=== PATIENT | male | born 1960 | race Caucasian/White ===

== ENCOUNTER 2020-09-12 06:52 | Outpatient (NON) | payer OTHER, SELFPAY ==
[2020-09-15 17:05] LABS: SARS-CoV-2 RNA PCR Negative
== END 2020-09-12 06:53 ==
LOC: ANHCOVIDDT 07:15
PROVIDERS: PCP Family Medicine Adolescent Medicine; Visit Provider Family Medicine Adolescent Medicine
DX: R05 Cough (principal); R50.9 Fever, unspecified; Z20.828 Contact with and (suspected) exposure to other viral communicable diseases
CPT/HCPCS: 87635; C9803; U0003

== ENCOUNTER 2022-12-04 14:16 | Emergency (ER) | payer OTHER, SELFPAY ==
--- NOTE | ~2022-12-04 | XR_ITS ---
XR chest 2V DATE: 12/04/2022 16:12 INDICATION: Cough. Lightheadedness. TECHNIQUE: PA and lateral views COMPARISON: None FINDINGS: Heart size is within normal range. No hilar or mediastinal enlargement. No pulmonary consol idation, pleural effusion, pulmonary vascular congestion or pneumothorax is detected. Mild thoracic dextroscoliosis and diffuse idiopathic skeletal hyperostosis of the thoracic spine. IMPRESSION: No active cardiopulmonary disease Reviewed, dictated and finalized at location [facility]. SPLANT NURSE
[2022-12-04 14:35] VITALS: BP 133/72; PULSE 72; RESP 14; TEMP 37.1; O2SAT 98
[2022-12-04 15:55] LABS: Influenza A QL RT-PCR Negative (Negative); Influenza B QL RT-PCR Negative (Negative); SARS-CoV-2 RNA PCR Negative
--- NOTE | 2022-12-04 16:08 | ED.EPISTAXIS ---
HPI - Epistaxis General Chief complaint: Epistaxis Stated complaint: nose bleed Time Seen by Provider: 12/04/22 14:48 Source: patient Mode of arrival: ambulatory Limitations: no limitations History of Present Illness HPI Narrative: This is a 62 year old male that presents to the ER after an episode of epistaxis today. Reports he has had some cough and congestion the last week. Reports today while at work he had a nosebleed on the left side. This resolved without intervention. He started to feel lightheaded which prompted him to be seen. He is not on any blood thinners. Denies fever, or shortness of breath. Related Data Allergies Allergy/AdvReac Type Severity Reaction Status Date / Time No Known Allergies Allergy Mild Verified 11/12/22 10:06 Review of Systems Review of Systems: CONSTITUTIONAL: Denies fever ENT: Reports rhinorrhea, congestion RESPIRATORY: Reports cough. Denies dyspnea. All systems reviewed & are unremarkable except as noted in HPI and below PMFSH Past Medical History Medical History (Updated 12/04/22 @ 17:59 by Erica Mullins PA-C) Hypothyroidism, unspecified Family History Family History (Updated 11/11/22 @ 07:30 by Doug Encarnacion MD) Father Rheumatoid arthritis Mother Lung cancer Social History Social History (Updated 12/04/22 @ 16:13 by Erica Mullins PA-C) Smoking status: Current every day smoker Exam Narrative: GENERAL: Well-appearing, well-nourished, and in no acute distress. HEAD: Normocephalic, atraumatic. EYES: PERRLA and EOMI. ENT: Nares clear, no rhinorrhea or epistaxis. Mucous membranes moist. Oropharynx without tonsillar hypertrophy exudate or other lesions. Bilateral TMs pearly andrea non-bulging NECK: Supple. No adenopathy or masses. CHEST: Clear to auscultation. No respiratory distress. No wheezes rales or rhonchi HEART: Regular rate and rhythm. No murmur heard. Normal peripheral pulses. EXTREMITIES: Normal range of motion. No edema. SKIN: Warm, dry, no rash. NEURO: No focal deficits. Alert and oriented x3. PSYCH: Normal mood and affect Course Course Emergency Course: Patient updated on workup and agrees with plan of care Vital Signs Vital signs: Vital Signs Temperature 98.8 F 12/04/22 14:35 Pulse Rate 72 12/04/22 14:35 Respiratory Rate 14 12/04/22 14:35 Blood Pressure 133/72 12/04/22 14:35 Pulse Oximetry 98 12/04/22 14:35 Oxygen Delivery Room Air 12/04/22 14:35 Temperature 98.8 F 12/04/22 14:35 Pulse Rate 72 12/04/22 14:35 Respiratory Rate 14 12/04/22 14:35 Blood Pressure 133/72 12/04/22 14:35 Pulse Oximetry 98 12/04/22 14:35 Oxygen Delivery Room Air 12/04/22 14:35 MDM - Epistaxis MDM Narrative Medical decision making narrative: Patient presents to the ER for a nosebleed. This had stopped prior to arrival. He is not on any anticoagulation. Reporting cold symptoms that have been present over the last week. Patient is afebrile and nontoxic-appearing. His vitals are stable. CBC with normal white blood cell count and hemoglobin. His platelets are normal. COVID and flu swabs are negative. Chest x-ray without acute cardiopulmonary abnormality. Patient was updated on work-up and agrees with plan of care. He is to follow-up with his primary care provider. He was given warnings to return to the ER Differential Diagnosis Differential diagnosis: Likely anterior epistaxis and other (viral syndrome, dehydration, pneumonia) Lab Data Attestation: I reviewed the patient's lab results. 12/04/22 16:35 12/04/22 16:35 Labs: Lab Results 12/04/22 12/04/22 12/04/22 Range/Units 15:02 16:35 16:35 WBC 9.2 (4.5-10.0) K/mm3 RBC 5.14 (4.6-6.20) M/mm3 Hgb 16.3 (14.0-18.0) g/dL Hct 48.5 (42.0-52.0) % MCV 94.4 (80-100) fl MCH 31.7 (26-34) pg MCHC 33.6 (32-36) g/dl RDW 13.8 (11.5-14.5) % Plt Count 266 (150-375) k/mm3 MPV 10.4 (7.4-10.4)
[2022-12-04 16:41] LABS: Basophils Absolute Auto 0.1 K/mm3 (0.0-0.1); Basophils Percent Auto 0.8 % (0.2-1.2); Eosinophils Absolute Auto 0.3 K/mm3 (0-0.3); Eosinophils Percent Auto 2.8 % (0-4.4); Hematocrit 48.5 % (42.0-52.0); Hemoglobin 16.3 g/dL (14.0-18.0); Immature Granulocyte Absolute 0.04 K/mm3 (0.00-0.031); Immature Granulocyte Percent A 0.4 % (0-0.5); Lymphocytes Percent Auto 39.2 % (18.3-44.2); Mean Corpuscular HGB Conc 33.6 g/dl (32-36); Mean Corpuscular Hemoglobin 31.7 pg (26-34); Mean Corpuscular Volume 94.4 fl (80-100); Mean Platelet Volume 10.4 fl (7.4-10.4); Monocytes Absolute Auto 0.8 K/mm3 (0.1-0.6); Neutrophils Absolute Auto 4.4 K/mm3 (1.3-6.7); Neutrophils Percent Auto 47.8 % (45.5-73.1); Platelet Count Result 266 k/mm3 (150-375); Red Blood Count 5.14 M/mm3 (4.6-6.20); Red Cell Distribution Width 13.8 % (11.5-14.5); White Blood Count 9.2 K/mm3 (4.5-10.0)
== END 2022-12-04 18:40 | disposition home or self-care (01) ==
PROVIDERS: Emergency Provider Physician Assistant; PCP Family Medicine Adolescent Medicine
DX: R04.0 Epistaxis (principal); B34.9 Viral infection, unspecified; Z20.822 Contact with and (suspected) exposure to COVID-19; E03.9 Hypothyroidism, unspecified
CPT/HCPCS: 36415; 71046; 85025; 87636; 99283

== ENCOUNTER 2022-12-15 00:01 | Observation (INO) | payer OTHER, SELFPAY ==
[2022-12-15] VITALS (15 sets, daily range): BP systolic 95–134; BP diastolic 56–82; PULSE 67–75; RESP 16–20; TEMP 35.5–36.6; O2SAT 89–96; BMI 41.0
[2022-12-15 00:10] LABS: Glucose Point of Care 189 mg/dl (65-105)
--- NOTE | 2022-12-15 00:29 | ED.NAVMDI ---
HPI - Nausea/Vomiting/Diarrhea General Chief complaint: Nausea/Vomiting/Diarrhea Stated complaint: hypoglycemia. n/v/weakness Time Seen by Provider: 12/15/22 00:19 History of Present Illness HPI Narrative: 62-year-old male here via EMS for evaluation of generalized weakness today. Patient states that this evening after eating dinner he became nauseated, diaphoretic and felt weak all over. He did fall to his knees on the bathroom floor but denies head injury or loss of consciousness. He then called his who called an ambulance. His blood sugar in the field was 42. He was administered glucagon and his symptoms improved and his glucose came up to 189. Patient does not take any medicine for diabetes. His only past medical history is levothyroxine. Denies alcohol use today. Denies recent use of corticosteroids. He currently feels slightly fatigued but denies any abdominal pain, vomiting, diarrhea, chest pain or shortness of breath. Related Data Allergies Allergy/AdvReac Type Severity Reaction Status Date / Time No Known Allergies Allergy Mild Verified 12/15/22 00:16 Review of Systems Review of Systems: Gen: Reports weakness. Denies fevers or chills Eyes: Denies eye pain or visual change ENT: Denies congestion Respiratory: Denies shortness of breath or cough CV: Denies chest pain or palpitations GI: Reports nausea. Denies abdominal pain, emesis or diarrhea : denies burning, urgency, frequency or hematuria Musculoskeletal: Denies back pain or muscle pain Neuro: Denies numbness, tingling, weakness or focal weakness Skin: Denies rash Except as documented, all other systems reviewed and negative [facility] Past Medical History Medical History Hypothyroidism, unspecified Family History Family History (Updated 11/11/22 @ 07:30 by Doug Encarnacion MD) Father Rheumatoid arthritis Mother Lung cancer Social History Social History (Updated 12/04/22 @ 16:13 by Erica Mullins PA-C) Smoking status: Current every day smoker Tobacco type: cigarettes Living arrangements: with family Spiritual care concerns: No Exam Narrative: APPEARANCE: Obese. Well appearing, no pain in distress, well-nourished. Head: Normocephalic and atraumatic. EYES: PERRLA/EOMI, conjunctivae clear NOSE: No nasal drainage EARS: External ear normal in appearance THROAT: Oropharynx is clear. Mucous membranes are moist. NECK: Supple. No adenopathy, no masses. RESPIRATORY: Airway patent, respirations nonlabored. Clear to auscultation bilaterally, no rales, rhonchi, wheezing. CARDIOVASCULAR: Regular rate and rhythm without murmurs, rubs, or gallops. ABDOMINAL: Normoactive bowel sounds. Soft, nontender, nondistended. No rebound tenderness or guarding. MUSCULOSKELETAL: Extremities are warm and well-perfused. Moves all extremities well. No edema. NEURO: Normal speech. No focal neurologic deficits. SKIN: Skin is warm and dry. No rashes. PSYCHIATRIC: Normal affect/mood. Course Vital Signs Vital signs: Vital Signs Pulse Rate 67 12/15/22 00:04 Respiratory Rate 18 12/15/22 00:04 Blood Pressure 126/75 12/15/22 00:04 Pulse Oximetry 95 12/15/22 00:04 Oxygen Delivery Room Air 12/15/22 00:04 Pulse Rate 70 12/15/22 01:47 Respiratory Rate 16 12/15/22 01:47 Blood Pressure 115/61 12/15/22 01:47 Pulse Oximetry 94 12/15/22 01:47 Oxygen Delivery Nasal Cannula 12/15/22 01:33 Oxygen Flow Rate 2 12/15/22 01:33 MDM - Nausea/Vomiting/Diarrhea MDM Narrative Medical decision making narrative: 62-year-old male here via EMS complaining of nausea, diaphoresis and generalized weakness and found to have a blood sugar of 42 in the field. He was administered d50 and his blood sugar came up to 189. Unclear etiology of hypoglycemia as patient states he ate his normal amount today and has not had any insulin or sulfonylureas. No nausea, vomiting or diarrhea
[2022-12-15 01:10] LABS: Basophils Absolute Auto 0.1 K/mm3 (0.0-0.1); Basophils Percent Auto 0.5 % (0.2-1.2); Eosinophils Absolute Auto 0.2 K/mm3 (0-0.3); Eosinophils Percent Auto 2.5 % (0-4.4); Hematocrit 48.7 % (42.0-52.0); Hemoglobin 16.3 g/dL (14.0-18.0); Immature Granulocyte Absolute 0.03 K/mm3 (0.00-0.031); Immature Granulocyte Percent A 0.3 % (0-0.5); Lymphocytes Absolute Auto 2.02 K/mm3 (0.9-3.2); Lymphocytes Percent Auto 20.8 % (18.3-44.2); Mean Corpuscular HGB Conc 33.5 g/dl (32-36); Mean Corpuscular Hemoglobin 31.3 pg (26-34); Mean Corpuscular Volume 93.7 fl (80-100); Mean Platelet Volume 11.2 fl (7.4-10.4); Monocytes Absolute Auto 0.7 K/mm3 (0.1-0.6); Monocytes Percent Auto 7.5 % (2.6-8.5); Neutrophils Absolute Auto 6.7 K/mm3 (1.3-6.7); Neutrophils Percent Auto 68.4 % (45.5-73.1); Platelet Count Result 219 k/mm3 (150-375); Red Cell Distribution Width 13.7 % (11.5-14.5); White Blood Count 9.7 K/mm3 (4.5-10.0)
[2022-12-15 01:25] LABS: Alanine Aminotransferase 20 U/L (6-50); Albumin Level 4.1 g/dL (3.5-5.1); Alkaline Phosphatase 105 U/L (38-126); Anion Gap 4 mmol/L (8-16); Aspartate Amino Transferase 24 U/L (17-59); Bilirubin,Total 0.5 mg/dL (0.2-1.3); Blood Urea Nitrogen 9 mg/dL (9-20); Calcium 8.7 mg/dL (8.4-10.2); Carbon Dioxide 29 mmol/L (22-30); Chloride 97 mmol/L (98-107); Estimated CRCL calculation 184 ml/min; Estimated Glomerular Filt Rate > 60; Glucose 183 mg/dL (65-110); Magnesium 1.8 mg/dL (1.6-2.3); Potassium 3.6 mmol/L (3.4-5.0); Sodium 130 mmol/L (137-145)
[2022-12-15 01:26] LABS: Ethanol < 10 mg/dL (<10)
[2022-12-15 03:05] LABS: Influenza A QL RT-PCR Negative (Negative); Influenza B QL RT-PCR Negative (Negative); SARS-CoV-2 RNA PCR Negative
--- NOTE | 2022-12-15 03:13 | PM.IMHP ---
H&P: HPI History of Present Illness Date/Time: 12/15/22 03:13 Chief Complaint: Weakness Narrative: This is a 52-year-old male with past medical history significant for tobacco dependence, smokes 1 and half packs of cigarettes daily, morbid obesity, hypothyroidism. Patient presented to the emergency room via EMS after he had an episode of nausea vomiting diarrhea near syncopal episode fell to his knees after dinner diaphoresis, cold and clammy skin. called EMS upon arrival he was found to have a blood sugar of 41 was given glucagon and brought to the emergency room for further evaluation. In emergency room preliminary workup has been essentially nonrevealing a sodium was 138 glucose was 189 patient denies ribs so repeat issues use of insulin or any herbal supplements or any weight loss products he has been eating all his meals has not noted weight loss. Patient is been placed in observation for further evaluation management and treatment. Review of Systems Review of Systems: Nausea, vomiting, diarrhea, near syncope, generalized weakness, diaphoretic cold clammy skin, low glucose Constitutional: Constitutional: Denies body ache(s), Denies chills, Denies fatigue, Denies fever(s), Denies lethargy, Denies malaise, Denies night sweats, Denies poor appetite and Denies weakness Eyes: Eyes: Denies change in vision ENT: Denies dysphagia, Reports nasal discharge and Denies odynophagia Cardiovascular: Cardiovascular: Denies chest pain, Reports lightheadedness and Denies palpitations Respiratory: Respiratory: Denies chest congestion and Denies pain on inspiration Gastrointestinal: Gastrointestinal: Denies abdominal pain, Denies hematochezia, Denies coffee ground emesis, Denies constipation, Denies dyspepsia, Denies heartburn, Reports diarrhea, Reports nausea and Reports vomiting Genitourinary: Genitourinary: Denies dysuria Musculoskeletal: Musculoskeletal: Denies myalgias and Denies joint swelling Integumentary/Breasts: Skin/Breast: Denies rash Neurologic: Denies focal weakness Psychiatric: Psychiatric: Reports no additional psychiatric complaints and Reports as per HPI Endocrine: Endocrine: Denies cold intolerance, Denies heat intolerance, Denies polydipsia, Denies polyuria and Denies palpitations Hematologic/Lymphatic: Hematologic/Lymphatic: Reports no additional hematologic/lymphatic complaints and Reports as per HPI Allergic/Immunologic: Allergic/Immunologic: Reports no additional allergic/immunologic complaints and Reports as per HPI [facility] Past Medical History Medical History Hypothyroidism, unspecified Family History Family History (Updated 11/11/22 @ 07:30 by Doug Encarnacion MD) Father Rheumatoid arthritis Mother Lung cancer Social History Social History (Updated 12/04/22 @ 16:13 by Erica Mullins PA-C) Smoking status: Current every day smoker Tobacco type: cigarettes Living arrangements: with family Spiritual care concerns: No Meds Home Medications and Allergies Home Medications Medication Instructions Recorded Confirmed Type levothyroxine 150 mcg tablet See Rx Instructions .Route 11/04/22 12/06/22 Rx .COMPLEX #30 tabs sildenafil 100 mg tablet 100 mg PO DAILY PRN sexual 11/12/22 12/06/22 Rx activity #6 tabs Allergies Allergy/AdvReac Type Severity Reaction Status Date / Time No Known Allergies Allergy Mild Verified 12/15/22 00:16 Vital Signs Vital Signs - 24 hr 12/15/22 00:04 12/15/22 00:30 12/15/22 00:15 Pulse Rate 67 68 71 Respiratory Rate 18 18 17 Blood Pressure 126/75 132/82 128/79 Pulse Oximetry 95 94 94 Oxygen Delivery Room Air Oxygen Flow Rate 12/15/22 00:46 12/15/22 01:01 12/15/22 01:33 Pulse Rate 67 71 Respiratory Rate 17 18 Blood Pressure 134/79 108/60 Pulse Oximetry 95 94 89 L Oxygen Delivery Nasal Cannula Oxygen Flow Rate 2 12/15/22 01:31 12/15/22 01:47
[2022-12-15 04:34] LABS: Cortisol Random 8.86 ug/dL
--- NOTE | 2022-12-15 04:35 | ADMGEN ---
This patient, Gregorio Stephens, was admitted to 3 [facility] Surg Room 302-01 at 0424. Patient/family oriented to hospital policies and general routines including ID bracelet, bed and alarms, visiting hours, pain management, procedures, bathroom and other care routines, personal items, smoking policy, room service/diet, and visiting hours. Information on how to activate the Rapid Response Team has been discussed. Patient/Family are encouraged to report perceived risks to care and to ask questions if they do not understand what they are told or what they should do.
[2022-12-15 10:11] LABS: Free T4 Free Thyroxine 1.17 ng/mL (0.78-2.19)
[2022-12-15 12:06] LABS: Glucose Point of Care 109 mg/dl (65-105)
[2022-12-15 12:21] LABS: Hemoglobin A1C 5.9 % (<5.7)
[2022-12-15] MEDS: LEVOTHYROXINE SODIUM 25 MCG TABLET PO (12:30)
[2022-12-15 13:37] LABS: Glucose Point of Care 111 mg/dl (65-105)
--- NOTE | 2022-12-15 14:23 | PM.DS ---
DS: Admitting Diagnosis Discharge Date 12/15/2022 Admitting Diagnosis Hypoglycemia Morbid (severe) obesity due to excess calories Hypothyroidism Tobacco dependence DS: Discharge Diagnosis Discharge Diagnosis (1) Hypoglycemia: Code(s): E16.2 - Hypoglycemia, unspecified Status: Acute (2) Morbid (severe) obesity due to excess calories: Code(s): E66.01 - Morbid (severe) obesity due to excess calories Status: Acute (3) Hypothyroidism: Code(s): E03.9 - Hypothyroidism, unspecified Status: Acute (4) Tobacco dependence: Code(s): F17.200 - Nicotine dependence, unspecified, uncomplicated Status: Acute (5) Prediabetes: Code(s): R73.03 - Prediabetes Status: Deleted DS: Summary Hospital Course Reason for hospitalization: N/V and near syncope Hospital Course: Cisco Stephens is a 52-year-old male with past medical history significant for tobacco dependence, morbid obesity, hypothyroidism.? Patient presented to the emergency room via EMS after he had an episode of nausea, vomiting diarrhea, and near syncopal episode. He reported he fell to his knees after dinner with associated diaphoresis, cold and clammy skin.? called EMS upon arrival he was found to have a blood sugar of 41 was given glucagon and brought to the emergency room for further evaluation.? In emergency room preliminary workup has been essentially nonrevealing with a sodium was 138 and glucose was 189. He denied prior episodes of hypoglycemia, use of insulin, use of herbal supplements or any weight loss products. He reported he has been eating all his meals has not noted weight loss.? He denied frequent alcohol use. He stated that his symptoms happened 1 hour after eating at a BBQ. He was admitted to the medical floor for further evaluation. His glucose was monitored Q4 hours and remained stable off glucose fluids. Pre- and post-prandial glucose was checked and 109 and 111, respectively. A1c was obtained and noted to be mildly elevated at 5.9% placing him in the pre-diabetes range. He was counseled on diet, hydration, weight loss and changing positions slowly. Of note, his TSH was noted to be 5.18 and free T4 1.17. Levothyroxine was increased to 175 mcg PO daily and repeat thyroid panel in 4-6 weeks is recommended. Status at Discharge Cognitive/behavioral status at discharge: Alert and oriented x3 Functional status at discharge: independent ambulation Overall status at discharge: patient is back to baseline Time Spent with Patient Time attestation: Total time spent providing and/or coordinating discharge services: Time spent: Greater than 30 minutes Exam Narrative: General: No acute distress.? Well-developed adult male. Temp 97.7F oral, HR 73, RR 16, BP 130/80, spO2 96% room air. BMI 41 kg/m2 Mental Status/Psych: Tired appearing, alert and oriented x3 with clear speech. Neutral mood and affect. Pleasant and cooperative. Skin: Skin fair, warm, dry and intact without rashes or lesions. No open wounds. Good turgor.?No diaphoresis. HEENT: Normocephalic. Sclera is non-icteric. EOM intact. PERRL. Grossly normal hearing. Oral mucosa pink and moist. Tongue midline. Oropharynx within normal limits. Neck: Supple. Thyroid without nodularity. Trachea midline. No JVD. Heart: S1 and S2 regular rate and rhythm. No murmurs, gallops, or rubs auscultated. Chest: Respirations even and unlabored. Lung sounds are clear to auscultation in all lobes bilaterally without wheezes, rhonchi, or rales. Abdomen: Soft, round and non-tender to palpation.? Bowel sounds present in all 4 quadrants. Extremities:? Grossly normal ROM all extremities. No edema. Radial and dorsalis pedis pulses +2 bilaterally. Neurological: No focal deficits. Cranial nerves 2-12 grossly intact.?No facial droop or pronator drift. DS: Data Data Completed and Pending Pending studies at discharge: Renin, serum ACTH, serum Labs on day of discharge: Labs from last 24
[2022-12-15 20:48] LABS: Glucose Point of Care 104 mg/dl (65-105)
== END 2022-12-15 15:15 | disposition home or self-care (01) ==
LOC: ANHED 02:18 → ANH3MEDSUR 14:23
PROVIDERS: Nurse Practitioner Family; Admitting Provider Internal Medicine; Emergency Provider Physician Assistant; PCP Family Medicine Adolescent Medicine; Visit Provider Student in an Organized Health Care Education/Training Program
DX: E16.2 Hypoglycemia, unspecified (principal); E66.01 Morbid (severe) obesity due to excess calories; Z68.41 Body mass index [BMI] 40.0-44.9, adult; E03.9 Hypothyroidism, unspecified; Z20.822 Contact with and (suspected) exposure to COVID-19; F17.210 Nicotine dependence, cigarettes, uncomplicated; Z79.899 Other long term (current) drug therapy
CPT/HCPCS: 36415; 80053; 80307; 82024; 82533; 82948; 83036; 83735; 84244; 84436; 84439; 84443; 85025; 87636; 99285; A9270; G0378

== ENCOUNTER 2023-01-06 12:59 | Emergency (ER) | payer OTHER, SELFPAY ==
--- NOTE | ~2023-01-06 | CT_ITS ---
EXAMINATION: CT abdomen pelvis wo con DATE: 01/06/2023 14:49 INDICATION: Right flank pain, nausea, dizziness TECHNIQUE: Computed tomography (CT) of the abdomen and pelvis was performed without intravenous contr ast. Automated exposure control and iterative reconstruction technique were employed. Exam dose: 166 1.64 mGy-cm total exam DLP. COMPARISON: None. FINDINGS: The lung bases are clear of infiltrate or consolidation. There are some focal honeycombing in the lingula. Normal heart size. Coronary artery calcification. No pericardial or pleural effusion. The liver, gallbladder, bile ducts, spleen, pancreas, pancreatic duct, and adrenal glands and kidneys are unremarkable on this limited noncontrast examination. No urinary tract calculus or hydroureteron ephrosis. Normal caliber and atherosclerotic calcification of the abdominal aorta, iliac and femoral arteries. No intraperitoneal or retroperitoneal or pelvic mass lesion or adenopathy or ascites. Diffuse thickening and urinary bladder wall which may be due to underdistention and/or some prostate enlargement. Normal appendix. Slight diverticulosis; no CT evidence of diverticulitis. There is a prominent of fec al material in the colon but no bowel obstruction, bowel wall thickening, pneumatosis or intraperiton eal free air is detected. Small fat-containing umbilical hernia. Degenerative changes apophyseal joints with associated grade 1 anterolisthesis at L4-5. Diffuse idiop athic skeletal hyperostosis of the thoracic spine. Moderately prominent degenerative disease and mild retrolisthesis at L1-2. IMPRESSION: Normal appendix Minimal diverticulosis; no CT evidence of diverticulitis Prominent amount of fecal material in the colon. No bowel obstruction No urinary tract calculus or hydroureteronephrosis Reviewed, dictated and finalized at Location [facility]. Reviewed, dictated and finalized at location B.
[2023-01-06 13:00] VITALS: BP 147/79; PULSE 75; RESP 18; TEMP 36.5; O2SAT 97
[2023-01-06 13:28] LABS: Basophils Percent Auto 0.3 % (0.2-1.2); Eosinophils Absolute Auto 0.2 K/mm3 (0-0.3); Hematocrit 48.5 % (42.0-52.0); Hemoglobin 16.1 g/dL (14.0-18.0); Immature Granulocyte Absolute 0.02 K/mm3 (0.00-0.031); Immature Granulocyte Percent A 0.2 % (0-0.5); Lymphocytes Absolute Auto 3.59 K/mm3 (0.9-3.2); Lymphocytes Percent Auto 32.3 % (18.3-44.2); Mean Corpuscular HGB Conc 33.2 g/dl (32-36); Mean Corpuscular Hemoglobin 31.2 pg (26-34); Mean Platelet Volume 10.3 fl (7.4-10.4); Monocytes Absolute Auto 0.9 K/mm3 (0.1-0.6); Monocytes Percent Auto 8.2 % (2.6-8.5); Neutrophils Absolute Auto 6.4 K/mm3 (1.3-6.7); Platelet Count Result 237 k/mm3 (150-375); Red Blood Count 5.16 M/mm3 (4.6-6.20); Red Cell Distribution Width 13.7 % (11.5-14.5); White Blood Count 11.1 K/mm3 (4.5-10.0)
[2023-01-06 13:39] LABS: Alanine Aminotransferase 22 U/L (6-50); Albumin Level 4.2 g/dL (3.5-5.1); Alkaline Phosphatase 97 U/L (38-126); Anion Gap 7 mmol/L (8-16); Aspartate Amino Transferase 23 U/L (17-59); Bilirubin,Total 0.6 mg/dL (0.2-1.3); Blood Urea Nitrogen 8 mg/dL (9-20); Calcium 8.7 mg/dL (8.4-10.2); Carbon Dioxide 28 mmol/L (22-30); Chloride 103 mmol/L (98-107); Estimated CRCL calculation 183 ml/min; Estimated Glomerular Filt Rate > 60; Glucose 104 mg/dL (65-110); Lipase 53 U/L (23-300); Potassium 3.9 mmol/L (3.4-5.0); Sodium 138 mmol/L (137-145)
[2023-01-06 15:08] VITALS: BP 126/72; PULSE 78; RESP 13; O2SAT 94
[2023-01-06 15:13] LABS: Glucose Point of Care 99 mg/dl (65-105)
[2023-01-06] MEDS: LACTATED RINGERS 1,000 ML 999 ML IV CONT (15:29)
[2023-01-06 15:30] VITALS: BP 108/76; PULSE 71; RESP 18; O2SAT 93
[2023-01-06] MEDS: ONDANSETRON INJ 4 MG/2 ML VIAL IV PUSH (15:30)
[2023-01-06 15:33] LABS: Appearance Urine Clear (Clear); Bacteria Urine None Seen /hpf; Bilirubin Urine Negative (Negative); Blood Urine Trace (Negative); Color Urine Yellow (Yellow); Glucose Urine UA Negative (Negative); Ketones Urine Negative (Negative); Leukocyte Esterase Ur Negative LEU/UL (Negative); Need Manual Microscopic Reviewed; Nitrate Urine Negative (Negative); Non Pathogenic Casts 0-2; Protein Urine Negative (Negative); RBC Urine 0-2 /hpf (0-2); Specific Grav Ur 1.006 (1.001-1.035); Squamous Epithelial Cell Urine None seen /hpf (Few); Urobilinogen Urine 0.2 mg/dL (<2.0); WBC Urine 0-5 /hpf; pH Urine 6.5 (5.0-9.0)
[2023-01-06 15:39] LABS: Add Urine Microscopic? YES
--- NOTE | 2023-01-06 16:23 | ED.BACK ---
HPI - Back Pain/Injury General Chief Complaint: Back Pain/Injury Stated Complaint: right flank pain Time Seen by Provider: 01/06/23 14:23 History of Present Illness HPI Narrative: Patient presenting with an episode of dizziness and right flank pain, with some nausea. Had similar symptoms in the past and was found to have low blood sugar. He did have lunch prior to this. No dysuria. No focal numbness or weakness. Related Data Allergies Allergy/AdvReac Type Severity Reaction Status Date / Time No Known Allergies Allergy Mild Verified 12/17/22 13:48 Review of Systems Review of Systems: CONST: No fever but felt lightheaded HEENT: No sore throat C/V: No chest pain RESP: No cough GI: Reports right flank pain and nausea : No dysuria. M/S: No joint pain. SKIN: No rash. NEURO: [No headache or focal numbness or weakness] PSYCH: [No depression] [facility] Past Medical History Medical History Hypothyroidism, unspecified Male erectile dysfunction, unspecified Morbid (severe) obesity due to excess calories Tobacco dependence Family History Family History Father Rheumatoid arthritis Mother Lung cancer Social History Social History Smoking packs per day: 1.5 Smoking cigarettes per day: 30.0 Smoking status: Current every day smoker Tobacco type: cigarettes Alcohol intake: former Substance use: never Substance use type: does not use Lack of Transportation: No Lack of Food: Never True Current Housing: I Have Housing Concerned About Future Housing: No Difficulty Paying Gas/Electric Bills: No Difficulty Paying for Meds: No Currently Unemployed: No Education: High School Diploma/GED Difficulty w/ Childcare or Family Care: No Living arrangements: with family Spiritual care concerns: No Exam Narrative: EXAMINATION OF ORGAN SYSTEMS/BODY AREAS: Constitutional: Vital signs per nursing GENERAL:[No acute distress, non-toxic appearing.] HEAD: Normal with no signs of head trauma. EYES: EOMI, conjunctiva normal ENT: Hearing grossly intact LUNGS: Nonlabored breathing. HEART: [Regular rate and rhythm] ABD: [Soft], tender to palpation right flank, anterior abdomen is nontender EXT: Normal range of motion. Normal and equal pulses bilaterally radial and DP SKIN: [No rashes or lesions.] NEURO: [Alert and oriented x 3. No gross focal sensory or strength deficits.] PSYCH: Normal affect Course Vital Signs Vital signs: Vital Signs Temperature 97.7 F 01/06/23 13:00 Pulse Rate 75 01/06/23 13:00 Respiratory Rate 18 01/06/23 13:00 Blood Pressure 147/79 H 01/06/23 13:00 Pulse Oximetry 97 01/06/23 13:00 Oxygen Delivery Room Air 01/06/23 13:00 Temperature 97.7 F 01/06/23 13:00 Pulse Rate 71 01/06/23 15:30 Respiratory Rate 18 01/06/23 15:30 Blood Pressure 108/76 01/06/23 15:30 Pulse Oximetry 93 01/06/23 15:30 Oxygen Delivery Room Air 01/06/23 13:00 MDM - Back Pain/Injury MDM Narrative Medical decision making narrative: Electronic medical record was reviewed. Patient presented to the ED with complaint of [flank pain and vomiting]. Vitals [were within acceptable limits]. Physical exam revealed [tenderness to palpation in right flank pain]. Based on the patient's history and physical exam, my differential includes but is not limited to [cholecystitis, pancreatitis, appendicitis, nephrolithiasis, UTI]; doubt dissection without severe pain or neurovascular deficits. [IV access was established by nursing staff. Patient was given zofran, IV fluids, tylenol]. CBC, BMP, lipase, LFTs, bilirubin and alk phos were obtained. Labs were pertinent for normal CBC, CMP, UA. [Decision was made to obtain a CT-abdomen/pelvis to evaluate for acute abdominal process. This is unremarkable for acute intra-abdominal process, no signs of
== END 2023-01-06 16:50 | disposition home or self-care (01) ==
PROVIDERS: Emergency Provider Emergency Medicine; PCP Family Medicine Adolescent Medicine
DX: R42 Dizziness and giddiness (principal); R10.9 Unspecified abdominal pain; F17.210 Nicotine dependence, cigarettes, uncomplicated; E03.9 Hypothyroidism, unspecified
CPT/HCPCS: 36415; 74176; 80053; 81001; 82948; 83690; 85025; 96361; 96365; 96375; 99284; J0131; J2405; J7120

== ENCOUNTER → 2023-04-16 15:53 | Outpatient (CLI) | payer OTHER, SELFPAY ==
--- NOTE | ~2023-04-16 | MR_ITS ---
MRI of the brain Clinical History: Right sensorineural hearing loss Technique: Axial and sagittal T1-weighted images were acquired. These were followed by axial T2-weigh jennie, diffusion weighted, gradient, and FLAIR images. Thin cut coronal T1-weighted and T2-weighted scotty ges, and thin cut axial T1-weighted images were performed through the internal auditory canals. Follo wing intravenous administration of 20 cc MultiHance gadolinium, T1-weighted fat-sat imaging was perfo rmed through the brain in the axial and coronal planes. Thin cut T1-weighted postcontrast imaging wa s also performed through the internal auditory canals in the axial and coronal planes. Findings: There is no acute infarct, intracranial hemorrhage, or mass lesion. There is focal FLAIR hy perintense signal in the right temporal lobe adjacent to the sylvian fissure (axial FLAIR image 14). No other signal abnormality seen in the remainder of the brain. Ventricles and subarachnoid spaces are unremarkable. Orbits are unremarkable. Paranasal sinuses and m astoid air cells are clear. Major intracranial flow voids are intact. Sagittal midline structures are intact. No abnormal mass lesion seen at the internal auditory canals or cerebellopontine angle regions. No abnormal postcontrast enhancement seen. IMPRESSION: Focal FLAIR hyperintense signal in the subcortical white matter in the right temporal lobe, as detail ed above. This is nonspecific. This could reflect focal chronic ischemic change versus possibly other focal inflammatory process. No other significant findings. Reviewed, dictated and finalized at location . IMPRESSION: Focal FLAIR hyperintense signal in the subcortical white matter in the right te mporal lobe, as detailed above. This is nonspecific. This could reflect focal c hronic ischemic change versus possibly other focal inflammatory process. No other significant findings.
== END ==
PROVIDERS: PCP Family Medicine Adolescent Medicine
DX: H90.A21 Sensorineural hearing loss, unilateral, right ear, with restricted hearing on the contralateral side (principal)
CPT/HCPCS: 70553; A9577

== ENCOUNTER 2023-05-19 12:02 | Emergency (ER) | payer OTHER, SELFPAY ==
[2023-05-19 12:05] VITALS: PULSE 66; RESP 16; O2SAT 90
[2023-05-19 12:38] VITALS: PULSE 67; RESP 12
[2023-05-19] MEDS: IPRATROPIUM BR 0.02% INH SOLN 0.5 MG/2.5 ML VIAL INHALATION (12:44)
[2023-05-19] MEDS: ALBUTEROL SULFATE NEB 2.5 MG/3 ML INH INHALATION (12:44)
--- NOTE | 2023-05-19 12:51 | ED.GENADULT ---
HPI - General Adult General Chief complaint: Dizziness Stated complaint: PULLIAM, dizzy, nausea since last noc Time Seen by Provider: 05/19/23 12:16 History of Present Illness HPI narrative: Patient is a 62-year-old male with history of M?ni?re's disease and vertigo who presents ER with dizziness. Patient reports he was at rest and sitting when he developed warmth and nausea. He then had spinning rotational dizziness. He ended up having some emesis. He tried to stand up but was too unbalanced. He reports his symptoms are improved right now. No weakness in arm or leg or slurred speech. Has not tried any medication. Reports he is not oxygen dependent but he is currently wearing 2 L due to low O2 sat. No chest pain or chest pressure. Denies dyspnea or wheezing. Related Data Allergies Allergy/AdvReac Type Severity Reaction Status Date / Time No Known Allergies Allergy Mild Verified 01/22/23 13:27 Review of Systems Review of Systems: All systems reviewed & are unremarkable except as noted in HPI and below Constitutional: Constitutional: Denies chills, Denies fatigue and Denies fever(s) ENT: Reports dizziness, Denies nasal congestion and Denies sore throat Cardiovascular: Cardiovascular: Denies chest pain, Denies rapid heart rate and Denies radiating jaw, neck or arm pain Respiratory: Respiratory: Denies cough, Denies dyspnea and Denies wheezing Comments: Low O2 sat Gastrointestinal: Gastrointestinal: Denies abdominal pain, Reports nausea and Reports vomiting [facility] Past Medical History Medical History (Updated 05/19/23 @ 14:12 by Jose Guadalupe Wharton MD) Hypothyroidism, unspecified Male erectile dysfunction, unspecified Meniere syndrome Morbid (severe) obesity due to excess calories Tobacco dependence Family History Family History Father Rheumatoid arthritis Mother Lung cancer Social History Social History Smoking packs per day: 1.5 Smoking cigarettes per day: 30.0 Smoking status: Current every day smoker Tobacco type: cigarettes Alcohol intake: former Substance use: never Substance use type: does not use Lack of Transportation: No Lack of Food: Never True Current Housing: I Have Housing Concerned About Future Housing: No Difficulty Paying Gas/Electric Bills: No Difficulty Paying for Meds: No Currently Unemployed: No Education: High School Diploma/GED Difficulty w/ Childcare or Family Care: No Living arrangements: with family Spiritual care concerns: No Exam Narrative: GENERAL: Well-appearing, well-nourished, and in no acute distress. HEAD: Normocephalic, atraumatic. EYES: PERRLA and EOMI. ENT: Mucous membranes moist. TMs normal bilaterally. NECK: Supple. CHEST: Faint scattered wheezing with expiration. No respiratory distress. HEART: Regular rate and rhythm. Normal peripheral pulses. ABDOMEN: Soft, nontender, nondistended. EXTREMITIES: Normal range of motion. No edema. NEURO: Alert and oriented x3. PSYCH: Normal mood and affect. Course Course Emergency Course: Up and ambulatory without issue. Pulse oximeter reading of 90-91% on room air while ambulating. No complaints. D/c. Vital Signs Vital signs: Vital Signs Pulse Rate 66 05/19/23 12:05 Respiratory Rate 16 05/19/23 12:05 Pulse Oximetry 90 05/19/23 12:05 Oxygen Delivery Room Air 05/19/23 12:05 Pulse Rate 68 05/19/23 12:57 Respiratory Rate 19 05/19/23 12:57 Blood Pressure 118/78 05/19/23 13:16 Pulse Oximetry 91 05/19/23 13:16 Oxygen Delivery Room Air 05/19/23 12:05 Medical Decision Making Vital Signs Vital Signs: Vital Signs Pulse Rate 66 05/19/23 12:05 Respiratory Rate 16 05/19/23 12:05 Pulse Oximetry 90 05/19/23 12:05 Oxygen Delivery Room Air 05/19/23 12:05 Pulse Rate 68 05/19/23 12:57 Respiratory Rate 1
[2023-05-19 12:57] VITALS: PULSE 68; RESP 19
[2023-05-19] MEDS: SODIUM CHLORIDE 0.9% IV 1,000 ML 999 ML IV CONT (13:01)
[2023-05-19] MEDS: MECLIZINE HCL 25 MG TABLET PO (13:02)
[2023-05-19 13:16] VITALS: BP 118/78; O2SAT 91
--- NOTE | 2023-05-19 14:17 | ECG_ITS ---
Measurements Intervals Randall Rate: 66 P: 42 GA: 165 QRS: 16 QRSD: 98 T: 38 QT: 392 QTc: 411 Interpretive Statements SINUS RHYTHM LOW QRS VOLTAGE IN PRECORDIAL LEADS BASELINE ARTIFACT- I, II, AVR BORDERLINE ECG NO PREVIOUS ECG AVAILABLE FOR COMPARISON Electronically Signed On 05-19-2023 16:29:13 CDT by Toby Najera D.O.
== END 2023-05-19 14:39 | disposition home or self-care (01) ==
PROVIDERS: Emergency Provider Emergency Medicine; PCP Family Medicine Adolescent Medicine
DX: H81.09 Meniere's disease, unspecified ear (principal); E03.9 Hypothyroidism, unspecified; E66.01 Morbid (severe) obesity due to excess calories; Z68.41 Body mass index [BMI] 40.0-44.9, adult; F17.210 Nicotine dependence, cigarettes, uncomplicated; R94.31 Abnormal electrocardiogram [ECG] [EKG]
CPT/HCPCS: 93005; 94640; 96360; 99283; A9270; J7030

== ENCOUNTER 2023-12-08 12:52 | Outpatient (CLI) | payer BC, SELFPAY ==
--- NOTE | ~2023-12-08 | MR_ITS ---
MRI of the brain Clinical History: Right temporal T2 hyperintensity Technique: Axial and sagittal T1-weighted images were acquired. These were followed by axial T2-weigh jennie, diffusion weighted, gradient, and FLAIR images. Following intravenous administration of 20 cc Mu ltiHance gadolinium, T1-weighted fat-sat imaging was performed in the axial, coronal, and sagittal pl anes. COMPARISON: 04/16/2023 Findings: Stable 1.0 x 0.5 cm FLAIR hyperintense subcortical white matter lesion in the right tempora l lobe. No other signal abnormality seen in the brain parenchyma. No acute infarct, intracranial hemo rrhage, or definite mass lesion seen. Ventricles and subarachnoid spaces are unremarkable. Orbits are unremarkable. Paranasal sinuses and m astoid air cells are clear. Major intracranial flow voids are intact. Sagittal midline structures are intact. No abnormal postcontrast enhancement identified. IMPRESSION: Stable focal FLAIR hyperintense lesion in the subcortical right temporal lobe. Stability is reassurin g of a benign finding. Reviewed, dictated and finalized at location [facility]. [facility] IMPRESSION: Stable focal FLAIR hyperintense lesion in the subcortical right temporal lobe. Stability is reassuring of a benign finding.
== END 2023-12-08 12:53 ==
PROVIDERS: PCP Family Medicine Adolescent Medicine; Visit Provider Student in an Organized Health Care Education/Training Program
DX: G93.89 Other specified disorders of brain (principal)
CPT/HCPCS: 70553; A9577

== ENCOUNTER 2024-01-31 10:02 | Emergency (ER) | payer BC, SELFPAY ==
--- NOTE | ~2024-01-31 | XR_ITS ---
EXAMINATION: XR thoracic spine 3V DATE: 01/31/2024 10:58 INDICATION: Thoracic spine pain post fall TECHNIQUE: One AP, lateral and lateral swimmer's views of the thoracic spine were obtained. COMPARISON: None. FINDINGS: 13 degrees thoracic levoscoliosis. Sagittal alignment is normal. Vertebral body heights are normal. M ultilevel mild disc height loss throughout the thoracic spine. There are bridging or nearly bridging endplate osteophytes at multiple levels consistent with diffuse idiopathic skeletal hyperostosis (DIS H). IMPRESSION: 1. Mild thoracic levoscoliosis with mild spondylosis and multiple bridging endplate osteophytes bladd er consistent with diffuse idiopathic skeletal hyperostosis (DISH). Reviewed, dictated and finalized at location A. IMPRESSION: 1. Mild thoracic levoscoliosis with mild spondylosis and multiple bridging endp late osteophytes bladder consistent with diffuse idiopathic skeletal hyperostos is (DISH).
--- NOTE | ~2024-01-31 | XR_ITS ---
EXAMINATION: XR ribs RT 2V w CXR 2V DATE: 01/31/2024 10:58 INDICATION: Thoracic spine and right rib pain post fall TECHNIQUE: Frontal and lateral views of the chest and 3 views of the right ribs were obtained. COMPARISON: None FINDINGS: Old healed posterior right ninth rib fracture. No acute rib fractures identified. Mild opacities at t he posterior lung bases. No pleural effusion or pneumothorax. The mediastinal silhouette is normal. P rominent right subacromial spur with narrowing of the subacromial space which could predispose toward s rotator cuff disease. IMPRESSION: 1. Old healed posterior right ninth rib fracture. No acute rib fractures identified. 2. Mild dependent basilar opacities and favor atelectasis over mild pulmonary edema or pneumonia. Reviewed, dictated and finalized at location A. IMPRESSION: 1. Old healed posterior right ninth rib fracture. No acute rib fractures identi fied. 2. Mild dependent basilar opacities and favor atelectasis over mild pulmonary e sohail or pneumonia.
--- NOTE | 2024-01-31 10:05 | ED.GENADULT ---
HPI - General Adult General Chief complaint: Back Pain/Injury Stated complaint: Fall Injury/Back Time Seen by Provider: 01/31/24 10:05 Source: patient, RN notes reviewed and old records reviewed Mode of arrival: ambulatory Limitations: no limitations History of Present Illness HPI narrative: 63-year-old male to [facility] with complaint of right midback pain for 1 month. Patient endorses history of Meniere's disease states that 1 month ago he had an episode in his garage and fell to his side and back onto right posterior ribs/mid back. Patient reports not being seen at that time. patient states that last week he had a repeat episode and fall onto same area of back. Patient denies allergies. Patient denies urinary or bowel changes. Patient states pain while sitting 4/10 reports pain 10/10 with movement. Related Data Home Medications Medication Instructions Recorded Confirmed baclofen 20 mg tablet mg 01/31/24 Allergies Allergy/AdvReac Type Severity Reaction Status Date / Time No Known Allergies Allergy Mild Verified 01/31/24 10:17 Review of Systems Review of Systems: All systems reviewed & are unremarkable except as noted in HPI and below Constitutional: Constitutional: Reports no additional constitutional complaints Eyes: Eyes: Reports no additional eye complaints ENT: Reports system reviewed and no additional complaints, except as documented Cardiovascular: Cardiovascular: Reports no additional cardiovascular complaints, Denies chest pain and Denies dyspnea Respiratory: Respiratory: Reports no additional respiratory complaints, Denies cough and Denies dyspnea Musculoskeletal: Musculoskeletal: Reports as per HPI, Reports back pain ( Mid into right posterior ribs), Denies deformity, Denies neck pain, Denies numbness, Denies radiating pain into limb, Denies stiffness and Denies tingling Neurologic: Reports system reviewed and no additional complaints, except as documented Psychiatric: Psychiatric: Reports no additional psychiatric complaints [facility] Past Medical History Medical History Hypothyroidism, unspecified Male erectile dysfunction, unspecified Meniere syndrome Morbid (severe) obesity due to excess calories Tobacco dependence Family History Family History Father Rheumatoid arthritis Mother Lung cancer Social History Social History Smoking packs per day: 1 Smoking cigarettes per day: 20.0 Smoking status: Current every day smoker Tobacco type: cigarettes Alcohol intake: former Substance use: never Substance use type: does not use Do You Feel Safe in your Home?: Yes Lack of Transportation: No Lack of Food: Never True Current Housing: I Have Housing Concerned About Future Housing: No Difficulty Paying Gas/Electric Bills: No Difficulty Paying for Meds: No Currently Unemployed: No Education: High School Diploma/GED Difficulty w/ Childcare or Family Care: No Living arrangements: with family Spiritual care concerns: No Comments At the time of my signature, I reviewed and agree with the nursing past medical, surgical, social, and family history. There is no relevant family history pertinent to the patient complaint. Exam Const: General: cooperative, healthy appearing, comfortable, no acute distress, alert and well nourished Nutritional Appearance: well nourished Orientation/consciousness: patient oriented x3 Limitations: no limitations HENMT: Head: normal to inspection Ears: external ears normal Face/Nose/Sinus: Normal external nose present, Normal nares present, normal facial exam, No erythema and No edema Face and sinus: normal facial exam, no erythema and no edema Mouth: Yes Normal oral and palatal mucosa present Eyes: General: appearance normal, both eyes and all
[2024-01-31 10:08] VITALS: BP 142/82; PULSE 67; RESP 16; TEMP 36.7; O2SAT 97
== END 2024-01-31 11:41 | disposition home or self-care (01) ==
PROVIDERS: Emergency Provider Nurse Practitioner Family; PCP Family Medicine Adolescent Medicine
DX: M48.10 Ankylosing hyperostosis [Forestier], site unspecified (principal); J98.11 Atelectasis; F17.210 Nicotine dependence, cigarettes, uncomplicated; H81.09 Meniere's disease, unspecified ear; E03.9 Hypothyroidism, unspecified; E66.01 Morbid (severe) obesity due to excess calories; Z68.41 Body mass index [BMI] 40.0-44.9, adult
CPT/HCPCS: 71046; 71100; 72072; 99214; G0463

== ENCOUNTER 2024-03-20 10:12 | Emergency (ER) | payer BC, SELFPAY ==
[2024-03-20 10:20] VITALS: BP 141/74; PULSE 78; RESP 20; TEMP 36.4; O2SAT 94
--- NOTE | 2024-03-20 10:44 | ED.WOUNDLAC ---
HPI - Wound/Laceration General Chief Complaint: Wound/Laceration Stated Complaint: bite on rt toe, blister Time Seen by Provider: 03/20/24 10:45 Source: patient Mode of arrival: ambulatory Limitations: no limitations History of Present Illness HPI narrative: 63 presented for complaint of wound to the right great toe. First noticed 3 days ago; it started as a small red bump then a white area opened and drained a small amount of clear fluid. Endorses itching. Denies pain to the site. Denies any other skin concerns. Reports concern for spider bite. Has not applied anything to the site. Related Data Allergies Allergy/AdvReac Type Severity Reaction Status Date / Time No Known Allergies Allergy Mild Verified 03/20/24 10:27 Review of Systems Review of Systems: CONSTITUTIONAL: Denies body aches, fever, chills, or sweats. EYES: Denies visual changes, redness, or discharge. ENT: Denies rhinorrhea, congestion CARDIOVASCULAR: Denies chest pain, palpitations, or edema. RESPIRATORY: Denies cough or dyspnea. GASTROINTESTINAL: Denies abdominal pain, nausea, vomiting, or diarrhea. SKIN: reports skin wound right great toe MUSCULOSKELETAL: Denies back pain, joint pain, or myalgia. NEUROLOGIC: Denies headache, numbness, tingling, or weakness. [facility] Past Medical History Medical History Hypothyroidism, unspecified Male erectile dysfunction, unspecified Meniere syndrome Morbid (severe) obesity due to excess calories Tobacco dependence Family History Family History Father Rheumatoid arthritis Mother Lung cancer Social History Social History (Updated 03/20/24 @ 10:59 by Arleth Roca APRN) Smoking packs per day: 1.5 Smoking cigarettes per day: 30.0 Years smoked: 43 Smoking pack-years: 64.50 Smoking status: Current every day smoker Tobacco type: cigarettes Alcohol intake: former Substance use: current Substance use type: marijuana Do You Feel Safe in your Home?: Yes Lack of Transportation: No Lack of Food: Never True Current Housing: I Have Housing Concerned About Future Housing: No Difficulty Paying Gas/Electric Bills: No Difficulty Paying for Meds: No Currently Unemployed: No Education: High School Diploma/GED Difficulty w/ Childcare or Family Care: No Living arrangements: with family Spiritual care concerns: No Comments At time of signature, I have reviewed and agree with nursing past medical, surgical, social and family history unless otherwise noted. Please see nursing chart for further information. There is no relevant family history pertinent to the presenting complaint Exam Narrative: GENERAL: Well-appearing EYES: conjunctivae clear, and EOMI. ENT: Mucous membranes moist. CHEST: Clear to auscultation. HEART: Regular rate and rhythm. SKIN: Warm, dry. Right foot with 1.5cm area c/w ruptured blister over 1st MTP; flat, nontender, no drainage or fluctuance, no swelling. Mild surrounding erythema. No streaking. 2nd toe IP joint medial aspect with firm pinpoint area of erythema (pt reports it is from wearing tennis shoes yesterday) NEURO: Alert and oriented x3. Course Course Emergency Course: Patient is aware of diagnosis, understands and agrees to treatment plan. Anticipatory guidance given. Patient agrees to follow-up as directed and is aware of reasons to seek care at the emergency department. Portions of this record may have been created with voice recognition software Level of Care: Express Care Visit Vital Signs Vital signs: Vital Signs Temperature 97.6 F 03/20/24 10:20 Pulse Rate 78 03/20/24 10:20 Respiratory Rate 20 03/20/24 10:20 Blood Pressure 141/74 H 03/20/24 10:20 Pulse Oximetry 94 03/20/24 10:20 Oxygen Delivery Room Air 03/20/24 10:20 Temperature 97.6 F 03/20/24 10:20 Pulse Rate 78 03/20/24
== END 2024-03-20 10:55 | disposition home or self-care (01) ==
PROVIDERS: Emergency Provider Nurse Practitioner Family; PCP Family Medicine Adolescent Medicine
DX: L03.031 Cellulitis of right toe (principal); F17.210 Nicotine dependence, cigarettes, uncomplicated; E03.9 Hypothyroidism, unspecified; E66.01 Morbid (severe) obesity due to excess calories; Z68.27 Body mass index [BMI] 27.0-27.9, adult; H81.09 Meniere's disease, unspecified ear
CPT/HCPCS: 99213; G0463

== ENCOUNTER 2024-03-24 00:52 | Day surgery (SDC) | payer BC, SELFPAY ==
[2024-03-12 10:42] VITALS: BMI 42.4
[2024-03-24 08:28] VITALS: BP 112/76; PULSE 86; RESP 18; TEMP 36.6; O2SAT 93
[2024-03-24] MEDS: LACTATED RINGERS 1,000 ML 150 ML IV CONT (08:40)
--- NOTE | 2024-03-24 09:23 | PM.HPGS ---
History of Present Illness History of Present Illness Consent: Risks, benefits, and alternatives have been discussed and questions answered. Patient agrees to proceed with procedure. Chief complaint: neoplasm screening Narrative: Gregorio Stephens is a 63 year old male here for first screening colonoscopy Review of Systems Review of Systems: All systems reviewed & are unremarkable except as noted in HPI and below PMFSH Past Medical History Medical History Hypothyroidism, unspecified Male erectile dysfunction, unspecified Meniere syndrome Morbid (severe) obesity due to excess calories Tobacco dependence Family History Family History Father Rheumatoid arthritis Mother Lung cancer Social History Social History (Updated 03/20/24 @ 10:59 by Arleth Roca APRN) Smoking packs per day: 1.5 Smoking cigarettes per day: 30.0 Years smoked: 43 Smoking pack-years: 64.50 Smoking status: Current every day smoker Tobacco type: cigarettes Alcohol intake: former Substance use: current Substance use type: marijuana Do You Feel Safe in your Home?: Yes Lack of Transportation: No Lack of Food: Never True Current Housing: I Have Housing Concerned About Future Housing: No Difficulty Paying Gas/Electric Bills: No Difficulty Paying for Meds: No Currently Unemployed: No Education: High School Diploma/GED Difficulty w/ Childcare or Family Care: No Living arrangements: with family Spiritual care concerns: No Meds Home Medications and Allergies Home Medications Medication Instructions Recorded Confirmed Type triamterene 37.5 1 tablet PO DAILY #30 tabs 09/16/23 03/20/24 Rx mg-hydrochlorothiazide 25 mg tablet levothyroxine 175 mcg tablet 175 mcg PO DAILY@0630 30 days #30 01/26/24 03/20/24 Rx (Synthroid) tabs cephalexin 500 mg capsule 500 mg PO Q8H 7 days #21 caps 03/20/24 03/24/24 Rx Allergies Allergy/AdvReac Type Severity Reaction Status Date / Time No Known Allergies Allergy Mild Verified 03/24/24 08:27 Vital Signs Vital Signs - 24 hr 03/24/24 08:28 Temperature 97.9 F Pulse Rate 86 Respiratory Rate 18 Blood Pressure 112/76 Pulse Oximetry 93 Oxygen Delivery Room Air Exam Const: General: comfortable and no acute distress HENMT: Face/Nose/Sinus: Normal nares present Eyes: General: appearance normal, both eyes and all related structures Neck: Neck: no JVD Resp: Auscultation: clear to auscultation bilaterally Cardio: Rate: regular rate Rhythm: regular rhythm GI: Inspection: non-distended GI Palp: Yes Soft to palpation Skin: General skin exam: normal color Neuro: General: gait normal Speech: normal speech Extrem: General: normal to inspection Psych: Mental Status: mental status grossly normal Assessment and Plan Assessment and plan (1) Colon cancer screening: Code(s): Z12.11 - Encounter for screening for malignant neoplasm of colon Status: Acute Assessment and Plan: colonoscopy
[2024-03-24 09:52] VITALS: BP 95/57; PULSE 75; RESP 30; O2SAT 92
[2024-03-24 10:02] VITALS: BP 107/73; PULSE 72; RESP 25; O2SAT 94
[2024-03-24 10:12] VITALS: BP 116/78; PULSE 69; RESP 22; O2SAT 93
--- NOTE | 2024-04-01 14:05 | WPDANESEPPF ---
Anes - Initial Pre Proc Eval Procedure: Operation Date: 03/24/24 09:30 Proposed Procedures p Screening Colonoscopy - Jovan Leos MD Date/Time: 04/01/24 14:05 Surgeon: Jovan Leos MD Pre Op Diagnosis: neoplasm screening Patient Data Age: 63 Gender: M Height: 1.8 m Weight: 137.7 kg Last Vital Signs Temp 97.9 F 03/24/24 08:28 Pulse 69 03/24/24 10:12 Resp 22 H 03/24/24 10:12 BP 116/78 03/24/24 10:12 Pulse Ox 93 03/24/24 10:12 O2 Del Method Room Air 03/24/24 10:12 O2 Flow Rate 3 03/24/24 10:02 Allergies Allergy/AdvReac Type Severity Reaction Status Date / Time No Known Allergies Allergy Mild Verified 03/26/24 10:46 Home Medications Medication Instructions Recorded Confirmed Type triamterene 37.5 1 tablet PO DAILY #30 tabs 09/16/23 03/26/24 Rx mg-hydrochlorothiazide 25 mg tablet levothyroxine 175 mcg tablet 175 mcg PO DAILY@0630 30 days #30 01/26/24 03/26/24 Rx (Synthroid) tabs cephalexin 500 mg capsule 500 mg PO Q8H 7 days #21 caps 03/20/24 03/26/24 Rx diazepam 5 mg tablet (Valium) 5 mg PO BID PRN dizziness or 03/26/24 03/26/24 Rx vertigo #20 tabs Patient hx anesthesia problems: none Family hx anesthesia problems: none Results Review: All pre-operative results and documents have been reviewed as part of the pre-operative evaluation. [facility] Past Medical History Medical History Hypothyroidism, unspecified Male erectile dysfunction, unspecified Meniere syndrome Morbid (severe) obesity due to excess calories Tobacco dependence Family History Family History Father Rheumatoid arthritis Mother Lung cancer Social History Social History Smoking packs per day: 1.5 Smoking cigarettes per day: 30.0 Years smoked: 43 Smoking pack-years: 64.50 Smoking status: Current every day smoker Tobacco type: cigarettes Alcohol intake: former Substance use: current Substance use type: marijuana Do You Feel Safe in your Home?: Yes Lack of Transportation: No Lack of Food: Never True Current Housing: I Have Housing Concerned About Future Housing: No Difficulty Paying Gas/Electric Bills: No Difficulty Paying for Meds: No Currently Unemployed: No Education: High School Diploma/GED Difficulty w/ Childcare or Family Care: No Living arrangements: with family Spiritual care concerns: No Anes - Eval Final PreProcedure Day of Procedure 04/01/24 14:05 Patient weight: morbidly obese Heart: regular rate and rhythm Lungs: clear to auscultation Airway: Mallampati scale class II Neurological: alert and oriented Last oral intake: >/= 8 hours ASA classification: III Emergent: no Anesthetic plan: proceed Anesthesia type and monitoring: general GIVS and standard monitoring Results Review: All pre-operative results and documents have been reviewed as part of the pre-operative evaluation. Informed Consent: The patient's anesthetic plan and its attendant risks and benefits were discussed with the patient/family/POA. Questions were solicited and answers provided to the satisfaction of the patient/family/POA.
== END 2024-03-24 10:23 | disposition home or self-care (01) ==
PROVIDERS: PCP Family Medicine Adolescent Medicine; Visit Provider Internal Medicine Gastroenterology
PROC: 0DJD8ZZ Inspection of Lower Intestinal Tract, Via Natural or Artificial Opening Endoscopic (ICD-10-PCS; CPT 45378; principal; 2024-03-24 09:30)
DX: Z12.11 Encounter for screening for malignant neoplasm of colon (principal); D12.2 Benign neoplasm of ascending colon; D12.3 Benign neoplasm of transverse colon; D12.8 Benign neoplasm of rectum; E03.9 Hypothyroidism, unspecified; E66.01 Morbid (severe) obesity due to excess calories; Z68.41 Body mass index [BMI] 40.0-44.9, adult; F17.210 Nicotine dependence, cigarettes, uncomplicated; F12.90 Cannabis use, unspecified, uncomplicated
CPT/HCPCS: 45385; 88305; J2704; J7120

== ENCOUNTER 2024-12-30 11:08 | Outpatient (CLI) | payer BC, SELFPAY ==
--- NOTE | ~2024-12-30 | CT_ITS ---
CT Scan of the Chest without Contrast: Clinical Indication: Lung cancer screening, nicotine dependence Technique: Contiguous sections were acquired throughout the chest without intravenous contrast. Dose reduction technique was used on this scan by utilizing automated exposure control and iterative recon struction technique. The dose-length product (DLP) was 372.98 mGy-cm. Findings: There is no evidence of any significant mediastinal, hilar or axillary lymphadenopathy. Coronary georgette ry calcification are present. There is no evidence of pleural or pericardial effusion. The lungs are clear, aside from calcified left upper lobe granuloma. There are minimal peripheral chr onic interstitial or emphysematous changes. Images through the upper abdomen reveal no abnormalities. Impression: Lung RADS 2: Benign appearance. 12 month follow-up screening CT advised. Reviewed, dictated and finalized at [facility]. Impression: Lung RADS 2: Benign appearance. 12 month follow-up screening CT advised.
--- NOTE | ~2024-12-30 | MR_ITS ---
EXAMINATION: MR brain/brain stem wo/w con DATE: 12/30/2024 12:50 INDICATION: Cerebrovascular disease. Headache. Dizziness. TECHNIQUE: Magnetic resonance imaging (MRI) of the brain and brainstem was performed without and with 20 mL ProHance intravenous contrast. COMPARISON: Brain MRI 12/08/2023, 04/16/23 FINDINGS: There are scattered areas of nonspecific increased T2-weighted signal intensity in the cere bral white matter. There is no intracranial hemorrhage, acute infarction, or abnormal intracranial ma ss lesion. The ventricles are normal in size. The orbits are normal. The paranasal sinuses are clear. There are trace mastoid effusions. IMPRESSION: 1. Stable mild nonspecific cerebral white matter disease, which likely represents chronic small vesse l ischemic disease. Reviewed, dictated and finalized at location B. IMPRESSION: 1. Stable mild nonspecific cerebral white matter disease, which likely represen ts chronic small vessel ischemic disease.
== END 2024-12-30 11:09 | disposition home or self-care (01) ==
PROVIDERS: PCP Family Medicine Adolescent Medicine; Visit Provider Nurse Practitioner Family
DX: Z12.2 Encounter for screening for malignant neoplasm of respiratory organs (principal); R90.82 White matter disease, unspecified; R29.6 Repeated falls; H81.09 Meniere's disease, unspecified ear; Z87.891 Personal history of nicotine dependence
CPT/HCPCS: 70553; 71271; A9579

== ENCOUNTER 2025-01-26 10:53 | Emergency (ER) | payer BC, SELFPAY ==
[2025-01-26 11:03] VITALS: BP 124/93; PULSE 75; RESP 16; TEMP 36.1; O2SAT 95
--- NOTE | 2025-01-26 11:29 | ED_ITS ---
HPI - Skin/Abscess/Foreign Bdy General Chief complaint: Skin/Abscess/Foreign Body Stated complaint: tick in back Source: patient Mode of arrival: ambulatory Limitations: no limitations History of Present Illness HPI narrative: 64-year-old male presented for complaint of a tick to the right side. First noticed last night. Says he was hungting [place] in [place] about 10 days ago. 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 Denies pain,n/v/d/f/c, fatigue, or myalgia. Related Data Allergies Allergy/AdvReac Type Severity Reaction Status Date / Time No Known Allergies Allergy Mild Verified 01/26/25 11:05 Review of Systems Review of Systems: CONSTITUTIONAL: Denies body aches, fever, chills, or sweats. EYES: Denies visual changes, redness, or discharge. ENT: Denies rhinorrhea, congestion CARDIOVASCULAR: Denies chest pain, palpitations, or edema. RESPIRATORY: Denies cough or dyspnea. GASTROINTESTINAL: Denies abdominal pain, nausea, vomiting, or diarrhea. SKIN: reports tick to right ribs MUSCULOSKELETAL: Denies back pain, joint pain, or myalgia. NEUROLOGIC: Denies headache, numbness, tingling, or weakness. [facility] Past Medical History Medical History Falls frequently Cerebrovascular disease Meniere syndrome Tobacco dependence Male erectile dysfunction, unspecified Morbid (severe) obesity due to excess calories Hypothyroidism, unspecified Family History Family History Father Rheumatoid arthritis Mother Lung cancer Social History Social History Smoking packs per day: 1.5 Smoking cigarettes per day: 30.0 Years smoked: 43 Smoking pack-years: 64.50 Smoking status: Current every day smoker Tobacco type: cigarettes Alcohol intake: former Substance use: current Substance use type: marijuana Do You Feel Safe in your Home?: Yes Lack of Transportation: No Lack of Food: Never True Current Housing: I Have Housing Concerned About Future Housing: No Difficulty Paying Gas/Electric Bills: No Difficulty Paying for Meds: No Currently Unemployed: No Education: High School Diploma/GED Difficulty w/ Childcare or Family Care: No Living arrangements: with family Spiritual care concerns: No Comments At time of signature, I have reviewed and agree with nursing past medical, surgical, social and family history unless otherwise noted. Please see nursing chart for further information. There is no relevant family history pertinent to the presenting complaint Exam Narrative: GENERAL: Well-appearing ENT: Mucous membranes moist. Oropharynx without edema, erythema or lesions. NECK: Supple. No lymphadenopathy CHEST: even and unlabored HEART: Regular rate and rhythm. SKIN: Warm, dry. Right lateral ribs with live tick imbedded in skin, surrounding erythema [id number] irregular in shape, no bulls eye appearing rash, skin is nontender, no fluctuance or drainage. no streaking NEURO: Alert and oriented x3. Course Course Emergency Course: Patient is aware of diagnosis, understands and agrees to treatment plan. Anticipatory guidance given. Patient agrees to follow-up as directed and is aware of reasons to seek care at the emergency department. Portions of this record may have been created with voice recognition software Level of Care: Express Care Visit Vital Signs Vital signs: Vital Signs Temperature 97 F L 01/26/25 11:03 Pulse Rate 75 01/26/25 11:03 Respiratory Rate 16 01/26/25 11:03 Blood Pressure 124/93 H 01/26/25 11:03 Pulse Oximetry 95 01/26/25 11:03 Oxygen Delivery Room Air 01/26/25 11:03 Temperature 97 F L 01/26/25 11:03 Pulse Rate 75 01/26/25 11:03 Respiratory Rate 16 01/26/25 11:03 Blood Pressure 124/93 H 01/26/25 11:03 Pulse Oximetry 95 01/26/25 11:03 Oxygen Delivery Room Air 01/26/25 11:03 Reviewed Procedures Foreign Body Removal Foreign Body #1: Foreign Body Removal Date: 01/26/25 Site: right (ribs) Description of foreign body: insect (tick) Technique: removal with forceps Confirmed by:: direct visualization and palpation Complications: none Foreign Body Removal Narrative: Tick removed intact. Site cleansed with skintegrity. MDM - Skin/Abscess/Foreign Bdy MDM Narrative Medical decision making narrative: Discussed physical exam findings, tick removed completely from right lateral rib area. Cleansed with skintegrity and bandaid applied. Rx doxycycline for prophylaxis. Advised supportive measures and signs/symptoms to go to the ER. Pt is appropriate for outpt treatment and f/u with pcp. Differential Diagnosis Differential diagnosis: Likely abscess of skin or subcutaneous tissue, dermatophytosis, urticaria, herpes zoster, cellulitis, insect bites and contact dermatitis Discharge Plan Discharge Clinical Impression: Tick bite Patient Disposition: Home Condition: Stable Instructions: Antibiotic Form, Lyme Disease (ED), Tick Bite (ED) Additional Instructions: The tick was removed completely today. Watch for Symptoms of tick-borne diseases such as Lyme disease or rash a small red bite or rash at the site is common but may indicate an allergic reaction symptoms of tick-borne diseases: Flu like symptoms such as fever, fatigue, muscle aches, joint pain, and bull's eye rash Take tylenol as needed for pain Keep the area clean and dry. take antibiotic as directed today for prophylaxis Contact your primary care provider today to schedule a follow-up appointment. Go to the ER for any worsening symptoms or concerns Patient Language: Danish Prescriptions: New doxycycline hyclate 100 mg tablet 200 mg PO DAILY 1 Days Qty: 2 0RF No Action Claritin-D 24 Hour 10-240 mg tablet extended release 24 hr 1 tablet PO DAILY Qty: 90 3RF levothyroxine [Synthroid] 175 mcg tablet 175 mcg PO DAILY@0630 30 Days Qty: 30 5RF Follow-up/Referrals: Doug Encarnacion MD [Primary Care Provider] - Time of Disposition: 11:39
== END 2025-01-26 11:45 | disposition home or self-care (01) ==
PROVIDERS: Emergency Provider Nurse Practitioner Family; PCP Family Medicine Adolescent Medicine
DX: S20.461A Insect bite (nonvenomous) of right back wall of thorax, initial encounter (principal); W57.XXXA Bitten or stung by nonvenomous insect and other nonvenomous arthropods, initial encounter; F17.210 Nicotine dependence, cigarettes, uncomplicated; F12.90 Cannabis use, unspecified, uncomplicated; I67.9 Cerebrovascular disease, unspecified; E03.9 Hypothyroidism, unspecified; E66.01 Morbid (severe) obesity due to excess calories; Z68.41 Body mass index [BMI] 40.0-44.9, adult
CPT/HCPCS: 99213; G0463

== ENCOUNTER 2025-04-30 05:31 | Observation (INO) | payer BC, SELFPAY ==
[2025-04-30] VITALS (24 sets, daily range): BP systolic 89–144; BP diastolic 45–92; PULSE 64–95; RESP 14–28; TEMP 35.8–36.8; O2SAT 90–96; BMI 41.7
--- NOTE | ~2025-04-30 | XR_ITS ---
EXAMINATION: XR chest 1V portable DATE: 04/30/2025 06:25 INDICATION: Fluid bolus TECHNIQUE: frontal view of the chest was obtained. COMPARISON: Chest radiograph dated 01/31/2024 and 12/04/2022 FINDINGS: Mild increased streaky interstitial opacities in the bilateral lower lung zones which could represent atelectasis, mild pulmonary edema, pneumonia or some combination thereof. Heart size is normal. No p leural effusion or pneumothorax. Calcified nodules in the left upper lung zone and calcified left hil ar lymph nodes consistent with old granulomatous disease. IMPRESSION: 1. Mild opacities at the bilateral lung bases which represent atelectasis, mild pulmonary edema, pneu monia or some combination thereof. Reviewed, dictated and finalized at location A. IMPRESSION: 1. Mild opacities at the bilateral lung bases which represent atelectasis, mild pulmonary edema, pneumonia or some combination thereof.
--- NOTE | 2025-04-30 06:14 | ED.GENADULT ---
HPI - General Adult General Chief complaint: Unspecified <Adina Grant MD - Last Filed: 04/30/25 06:56> Stated complaint: feels food stuck in throat <Adina Grant MD - Last Filed: 04/30/25 06:56> Time Seen by Provider: 04/30/25 05:36 <Adina Grant MD - Last Filed: 04/30/25 06:56> History of Present Illness HPI narrative: Patient is a 64-year-old male who presents to the emergency department this morning complaining of a fluid bolus since 6:00 p.m. last night. States that he was eating turkey. States that he has not been able to drink or eat anything since this occurred without having to vomit. Admits that this has happened once in the past and at that time he was administered medication through the IV which resolved the food bolus. Patient admits that he is heavy smoker but denies any history of COPD or asthma. Otherwise denies any additional symptoms or concerns at this time PE <Adina Grant MD - Last Filed: 04/30/25 06:56> Related Data Allergies/adverse reactions: Allergies Allergy/AdvReac Type Severity Reaction Status Date / Time No Known Allergies Allergy Mild Verified 04/30/25 07:28 <Adina Grant MD - Last Filed: 04/30/25 06:56> Review of Systems Review of Systems: All systems are reviewed and are negative unless stated otherwise in the HPI. <Adina Grant MD - Last Filed: 04/30/25 06:56> PMFSH Past Medical History Medical History: Medical History Thyroid disorder Right-sided cerebrovascular accident (CVA) Falls frequently Cerebrovascular disease Meniere syndrome Tobacco dependence Male erectile dysfunction, unspecified Morbid (severe) obesity due to excess calories Hypothyroidism, unspecified <Adina Grant MD - Last Filed: 04/30/25 06:56> Family History Family History: Family History Father Rheumatoid arthritis Mother Lung cancer Sibling Diabetes mellitus <Adina Grant MD - Last Filed: 04/30/25 06:56> Social History Social History: Social History Smoking packs per day: 1.5 Smoking cigarettes per day: 30.0 Years smoked: 43 Smoking pack-years: 64.50 Smoking status: Current every day smoker Tobacco type: cigarettes Alcohol intake: former Substance use: current Substance use type: marijuana Do You Feel Safe in your Home?: Yes Lack of Transportation: No Lack of Food: Never True Current Housing: I Have Housing Concerned About Future Housing: No Difficulty Paying Gas/Electric Bills: No Difficulty Paying for Meds: No Currently Unemployed: No Education: High School Diploma/GED Difficulty w/ Childcare or Family Care: No Living arrangements: with family Spiritual care concerns: No <Adina Grant MD - Last Filed: 04/30/25 06:56> Exam Narrative: General: Alert, awake, afebrile, in no acute distress. HEENT: PERRL, no rhinorrhea, no post nasal drip, oropharynx clear. Neck: Trachea midline, no JVD, no lymphadenopathy. Cardiovascular: Regular rate and rhythm, no murmurs, rubs or gallops, no peripheral edema. Respiratory: Clear to auscultation bilaterally, no tachypnea, no wheezing, no rhonchi, no rubs, no respiratory distress. Abdomen: Soft, nontender, nondistended, no rebound, no guarding, no peritoneal signs. Musculoskeletal: No joint swelling or deformity, normal muscle tone. Skin: No rashes or petechia, no signs of infection. Psychiatric: Alert and oriented, normal behavior and judgment for situation. Neurological: Alert and oriented to person, place, and time. Follows all commands. No focal deficits, speech is clear and fluent. <Adina Grant MD - Last Filed: 04/30/25 06:56> Course Course Emergency Course: 0710: Food is not passed despite glucagon. GI contacted will take GI suite. 0826: Patient on the way to the GI suite. Still hypoxic after nebulizer treatment. Discussed with patient as well as hospitalist service. Admit for aspiration pneumonia after procedure. Will be started on ceftriaxone and metronidazole. <Jose Guadalupe Wharton MD - Last Filed: 04/30/25 08:27> Vital Signs Vital signs: Vital Signs Temperature 98.2 F 04/30/25 05:39 Pulse Rate 83 04/30/25 05:39 Respiratory Rate 18 04/30/25 05:39 Blood Pressure 144/75 H 04/30/25 05:39 Pulse Oximetry 90 04/30/25 05:39 Temperature 97.7 F 04/30/25 08:24 Pulse Rate 90 04/30/25 08:24 Respiratory Rate 18 04/30/25 08:24 Blood Pressure 134/86 04/30/25 08:24 Pulse Oximetry 94 04/30/25 08:24 Oxygen Delivery Nasal Cannula 04/30/25 08:24 Oxygen Flow Rate 3 04/30/25 08:24 <Adina Grant MD - Last Filed: 04/30/25 06:56> Vital Signs Temperature 98.2 F 04/30/25 05:39 Pulse Rate 83 04/30/25 05:39 Respiratory Rate 18 04/30/25 05:39 Blood Pressure 144/75 H 04/30/25 05:39 Pulse Oximetry 90 04/30/25 05:39 Temperature 97.7 F 04/30/25 08:24 Pulse Rate 90 04/30/25 08:24 Respiratory Rate 18 04/30/25 08:24 Blood Pressure 134/86 04/30/25 08:24 Pulse Oximetry 94 04/30/25 08:24 Oxygen Delivery Nasal Cannula 04/30/25 08:24 Oxygen Flow Rate 3 04/30/25 08:24 <Jose Guadalupe Wharton MD - Last Filed: 04/30/25 08:27> Medical Decision Making MDM Narrative Medical decision making narrative: The patient was evaluated by myself in the emergency department. History is obtained from patient who is an independent historian and physical exam was performed. External medical records were reviewed at this time. IV was established and pertinent tests were ordered. Patient was administered 2 mg of IV glucagon for fluid bolus. Laboratory results obtained revealing no acute process. Imaging studies obtained included CXR which was independently interpreted by me revealing: IMPRESSION: 1. Mild opacities at the bilateral lung bases which represent atelectasis, mild pulmonary edema, pneumonia or some combination thereof. Differential diagnosis considerations include esophageal food bolus, esophageal stricture. Comorbidities impacting this visit include history of fluid bolus. I have evaluated and discussed social determinants of health with the patient that could potentially impact subsequent diagnosis and treatment plans. Patient was signed out to Dr. Wharton pending remainder of the workup. <Adina Grant MD - Last Filed: 04/30/25 06:56> Vital Signs Vital Signs: Vital Signs Temperature 98.2 F 04/30/25 05:39 Pulse Rate 83 04/30/25 05:39 Respiratory Rate 18 04/30/25 05:39 Blood Pressure 144/75 H 04/30/25 05:39 Pulse Oximetry 90 04/30/25 05:39 Temperature 97.7 F 04/30/25 08:24 Pulse Rate 90 04/30/25 08:24 Respiratory Rate 18 04/30/25 08:24 Blood Pressure 134/86 04/30/25 08:24 Pulse Oximetry 94 04/30/25 08:24 Oxygen Delivery Nasal Cannula 04/30/25 08:24 Oxygen Flow Rate 3 04/30/25 08:24 <Adina Grant MD - Last Filed: 04/30/25 06:56> Vital Signs Temperature 98.2 F 04/30/25 05:39 Pulse Rate 83 04/30/25 05:39 Respiratory Rate 18 04/30/25 05:39 Blood Pressure 144/75 H 04/30/25 05:39 Pulse Oximetry 90 04/30/25 05:39 Temperature 97.7 F 04/30/25 08:24 Pulse Rate 90 04/30/25 08:24 Respiratory Rate 18 04/30/25 08:24 Blood Pressure 134/86 04/30/25 08:24 Pulse Oximetry 94 04/30/25 08:24 Oxygen Delivery Nasal Cannula 04/30/25 08:24 Oxygen Flow Rate 3 04/30/25 08:24 <Jose Guadalupe Wharton MD - Last Filed: 04/30/25 08:27> Lab Data Result diagrams: 04/30/25 06:29 04/30/25 06:29 <Adina Grant MD - Last Filed: 04/30/25 06:56> Labs: Lab Results 04/30/25 Range/Units 06:29 WBC 11.2 H (4.5-10.0) K/mm3 RBC 5.64 (4.6-6.20) M/mm3 Hgb 17.2 (14.0-18.0) g/dL Hct 52.5 H (42.0-52.0) % MCV 93.1 (80-100) fl MCH 30.5 (26-34) pg MCHC 32.8 (32-36) g/dl RDW 13.8 (11.5-14.5) % Plt Count 272 (150-375) k/mm3 MPV 10.3 (7.4-10.4) fl Immature Gran % (Auto) 0.4 (0-0.5) % Neut % (Auto) 65.4 (45.5-73.1) % Lymph % (Auto) 24.1 (18.3-44.2) % [place] % (Auto) 8.1 (2.6-8.5) % Eos % (Auto) 1.4 (0-4.4) % Baso % (Auto) 0.6 (0.2-1.2) % Lymph # (Auto) 2.71 (0.9-3.2) K/mm3 [place] # (Auto) 0.9 H (0.1-0.6) K/mm3 Eos # (Auto) 0.2 (0-0.3) K/mm3 Baso # (Auto) 0.1 (0.0-0.1) K/mm3 Abs Immat Gran (auto) 0.04 H (0.00-0.031) K/mm3 Absolute Neuts (auto) 7.4 H (1.3-6.7) K/mm3 Absolute Nucleated RBC 0.000 (0.0-0.012) K/mm3 Nucleated RBC % 0.0 (0.0-0.2) % Sodium 140 (137-145) mmol/L Potassium 4.2 (3.4-5.0) mmol/L Chloride 104 (98-107) mmol/L Carbon Dioxide 26 (22-30) mmol/L Anion Gap 10 (4-12) mmol/L BUN 13 D (9-20) mg/dL Creatinine 0.67 L (0.7-1.3) mg/dL Estim Creat Clear Calc Not Reportable Estimated GFR > 60 (59 - ) Glucose 120 H (65-110) mg/dL Calcium 9.1 (8.4-10.2) mg/dL Magnesium 2.1 (1.6-2.3) mg/dL Total Bilirubin 0.7 (0.2-1.3) mg/dL AST 29 (17-59) U/L ALT 21 (6-50) U/L Alkaline Phosphatase 90 (38-126) U/L Total Protein 8.6 H (6.3-8.2) g/dL Albumin 4.3 (3.5-5.1) g/dL <Adina Grant MD - Last Filed: 04/30/25 06:56> Lab Results 04/30/25 Range/Units 06:29 WBC 11.2 H (4.5-10.0) K/mm3 RBC 5.64 (4.6-6.20) M/mm3 Hgb 17.2 (14.0-18.0) g/dL Hct 52.5 H (42.0-52.0) % MCV 93.1 (80-100) fl MCH 30.5 (26-34) pg MCHC 32.8 (32-36) g/dl RDW 13.8 (11.5-14.5) % Plt Count 272 (150-375) k/mm3 MPV 10.3 (7.4-10.4) fl Immature Gran % (Auto) 0.4 (0-0.5) % Neut % (Auto) 65.4 (45.5-73.1) % Lymph % (Auto) 24.1 (18.3-44.2) % [place] % (Auto) 8.1 (2.6-8.5) % Eos % (Auto) 1.4 (0-4.4) % Baso % (Auto) 0.6 (0.2-1.2) % Lymph # (Auto) 2.71 (0.9-3.2) K/mm3 [place] # (Auto) 0.9 H (0.1-0.6) K/mm3 Eos # (Auto) 0.2 (0-0.3) K/mm3 Baso # (Auto) 0.1 (0.0-0.1) K/mm3 Abs Immat Gran (auto) 0.04 H (0.00-0.031) K/mm3 Absolute Neuts (auto) 7.4 H (1.3-6.7) K/mm3 Absolute Nucleated RBC 0.000 (0.0-0.012) K/mm3 Nucleated RBC % 0.0 (0.0-0.2) % Sodium 140 (137-145) mmol/L Potassium 4.2 (3.4-5.0) mmol/L Chloride 104 (98-107) mmol/L Carbon Dioxide 26 (22-30) mmol/L Anion Gap 10 (4-12) mmol/L BUN 13 D (9-20) mg/dL Creatinine 0.67 L (0.7-1.3) mg/dL Estim Creat Clear Calc Not Reportable Estimated GFR > 60 (59 - ) Glucose 120 H (65-110) mg/dL Calcium 9.1 (8.4-10.2) mg/dL Magnesium 2.1 (1.6-2.3) mg/dL Total Bilirubin 0.7 (0.2-1.3) mg/dL AST 29 (17-59) U/L ALT 21 (6-50) U/L Alkaline Phosphatase 90 (38-126) U/L Total Protein 8.6 H (6.3-8.2) g/dL Albumin 4.3 (3.5-5.1) g/dL <Jose Guadalupe Wharton MD - Last Filed: 04/30/25 08:27> Discharge Plan Discharge Clinical Impression: Esophageal obstruction due to food impaction, Aspiration pneumonia <Adina Grant MD - Last Filed: 04/30/25 06:56> Patient Disposition: Still a Patient <Adina Grant MD - Last Filed: 04/30/25 06:56> Condition: Stable <Adina Grant MD - Last Filed: 04/30/25 06:56>
[2025-04-30 06:36] LABS: Hematocrit 52.5 % (42.0-52.0); Hemoglobin 17.2 g/dL (14.0-18.0); Immature Granulocyte Percent A 0.4 % (0-0.5); Lymphocytes Absolute Auto 2.71 K/mm3 (0.9-3.2); Mean Corpuscular HGB Conc 32.8 g/dl (32-36); Mean Corpuscular Hemoglobin 30.5 pg (26-34); Mean Corpuscular Volume 93.1 fl (80-100); Nucleated Red Blood Cells Absolute Auto 0.000 K/mm3 (0.0-0.012); Nucleated Red Blood Cells Perc 0.0 % (0.0-0.2); Platelet Count Result 272 k/mm3 (150-375); Red Blood Count 5.64 M/mm3 (4.6-6.20); White Blood Count 11.2 K/mm3 (4.5-10.0)
[2025-04-30 06:45] LABS: Alanine Aminotransferase 21 U/L (6-50); Albumin Level 4.3 g/dL (3.5-5.1); Alkaline Phosphatase 90 U/L (38-126); Anion Gap 10 mmol/L (4-12); Aspartate Amino Transferase 29 U/L (17-59); Bilirubin,Total 0.7 mg/dL (0.2-1.3); Blood Urea Nitrogen 13 mg/dL (9-20); Calcium 9.1 mg/dL (8.4-10.2); Carbon Dioxide 26 mmol/L (22-30); Chloride 104 mmol/L (98-107); Estimated Glomerular Filt Rate > 60; Glucose 120 mg/dL (65-110); Magnesium 2.1 mg/dL (1.6-2.3); Potassium 4.2 mmol/L (3.4-5.0); Sodium 140 mmol/L (137-145); Total Protein 8.6 g/dL (6.3-8.2)
[2025-04-30] MEDS: GLUCAGON FOR INJ 1 MG VIAL 2 MG IV PUSH (06:45)
[2025-04-30] MEDS: ONDANSETRON INJ 4 MG/2 ML VIAL IV PUSH (07:07)
[2025-04-30] MEDS: IPRATROPIUM 0.5 MG/ALBUTEROL SULFATE 2.5 MG AMPUL.NEB 3 ML INHALATION ×3 (07:25→19:39)
--- NOTE | 2025-04-30 08:36 | P.PNAN_ITS ---
Anes - Initial Pre Proc Eval Procedure: Operation Date: 04/30/25 08:00 Proposed Procedures p Esophagogastroduodenoscopy - Jovan Leos MD Date/Time: 04/30/25 08:36 Surgeon: Jovan Leos MD Pre Op Diagnosis: feels food stuck in throat Patient Data Age: 64 Gender: M Height: Weight: 136 kg Last Vital Signs Temp 36.6 C 04/30/25 08:26 Pulse 95 04/30/25 08:26 Resp 16 04/30/25 08:26 BP 108/45 L 04/30/25 08:26 Pulse Ox 96 04/30/25 08:26 O2 Del Method Nasal Cannula 04/30/25 08:26 O2 Flow Rate 3 04/30/25 08:26 Allergies Allergy/AdvReac Type Severity Reaction Status Date / Time No Known Allergies Allergy Mild Verified 04/30/25 08:27 Home Medications ?Medication ?Instructions ?Recorded ?Confirmed ?Type levothyroxine 175 mcg tablet 175 mcg PO DAILY@0630 30 days #30 02/21/25 04/27/25 Rx (Synthroid) tabs loratadine-pseudoephedrine ER 10 1 tablet PO DAILY #90 tabs 04/19/25 04/27/25 Rx mg-240 mg tablet,extended [id number] (Claritin-D 24 Hour) doxycycline hyclate 100 mg capsule 100 mg PO BID 5 days #10 caps 04/30/25 Rx Laboratory Tests 04/30/25 06:29 WBC 11.2 H K/mm3 (4.5-10.0) RBC 5.64 M/mm3 (4.6-6.20) Hgb 17.2 g/dL (14.0-18.0) Hct 52.5 H % (42.0-52.0) MCV 93.1 fl (80-100) MCH 30.5 pg (26-34) MCHC 32.8 g/dl (32-36) RDW 13.8 % (11.5-14.5) Plt Count 272 k/mm3 (150-375) MPV 10.3 fl (7.4-10.4) Immature Gran % (Auto) 0.4 % (0-0.5) Neut % (Auto) 65.4 % (45.5-73.1) Lymph % (Auto) 24.1 % (18.3-44.2) [place] % (Auto) 8.1 % (2.6-8.5) Eos % (Auto) 1.4 % (0-4.4) Baso % (Auto) 0.6 % (0.2-1.2) Lymph # (Auto) 2.71 K/mm3 (0.9-3.2) [place] # (Auto) 0.9 H K/mm3 (0.1-0.6) Eos # (Auto) 0.2 K/mm3 (0-0.3) Baso # (Auto) 0.1 K/mm3 (0.0-0.1) Abs Immat Gran (auto) 0.04 H K/mm3 (0.00-0.031) Absolute Neuts (auto) 7.4 H K/mm3 (1.3-6.7) Absolute Nucleated RBC 0.000 K/mm3 (0.0-0.012) Nucleated RBC % 0.0 % (0.0-0.2) Sodium 140 mmol/L (137-145) Potassium 4.2 mmol/L (3.4-5.0) Chloride 104 mmol/L (98-107) Carbon Dioxide 26 mmol/L (22-30) Anion Gap 10 mmol/L (4-12) BUN 13 D mg/dL (9-20) Creatinine 0.67 L mg/dL (0.7-1.3) Estim Creat Clear Calc Not Reportable Estimated GFR > 60 (59 - ) Glucose 120 H mg/dL (65-110) Calcium 9.1 mg/dL (8.4-10.2) Magnesium 2.1 mg/dL (1.6-2.3) Total Bilirubin 0.7 mg/dL (0.2-1.3) AST 29 U/L (17-59) ALT 21 U/L (6-50) Alkaline Phosphatase 90 U/L (38-126) Total Protein 8.6 H g/dL (6.3-8.2) Albumin 4.3 g/dL (3.5-5.1) Patient hx anesthesia problems: none Family hx anesthesia problems: none Results Review: All pre-operative results and documents have been reviewed as part of the pre- operative evaluation. [facility] Past Medical History Medical History Thyroid disorder Right-sided cerebrovascular accident (CVA) Falls frequently Cerebrovascular disease Meniere syndrome Tobacco dependence Male erectile dysfunction, unspecified Morbid (severe) obesity due to excess calories Hypothyroidism, unspecified Family History Family History Father Rheumatoid arthritis Mother Lung cancer Sibling Diabetes mellitus Social History Social History Smoking packs per day: 1.5 Smoking cigarettes per day: 30.0 Years smoked: 43 Smoking pack-years: 64.50 Smoking status: Current every day smoker Tobacco type: cigarettes Alcohol intake: former Substance use: current Substance use type: marijuana Do You Feel Safe in your Home?: Yes Lack of Transportation: No Lack of Food: Never True Current Housing: I Have Housing Concerned About Future Housing: No Difficulty Paying Gas/Electric Bills: No Difficulty Paying for Meds: No Currently Unemployed: No Education: High School Diploma/GED Difficulty w/ Childcare or Family Care: No Living arrangements: with family Spiritual care concerns: No Anes - Eval Final PreProcedure Day of Procedure 04/30/25 08:36 Patient weight: obese Heart: regular rate and rhythm Lungs: clear to auscultation Airway: Mallampati scale class II Neurological: alert and oriented Last oral intake: >/= 8 hours ASA classification: III Emergent: no Anesthetic plan: proceed Anesthesia type and monitoring: general GIVS and standard monitoring Results Review: All pre-operative results and documents have been reviewed as part of the pre- operative evaluation. Informed Consent: The patient's anesthetic plan and its attendant risks and benefits were discussed with the patient/family/POA. Questions were solicited and answers provided to the satisfaction of the patient/family/POA.
[2025-04-30] MEDS: LACTATED RINGERS 1,000 ML 150 ML IV CONT (08:45)
--- NOTE | 2025-04-30 09:30 | P.CONGI_ITS ---
Assessment and Plan Assessment and plan (1) Esophageal obstruction due to food impaction: Code(s): T18.128A - Food in esophagus causing other injury, initial encounter; W44.F3XA - Food entering into or through a natural orifice, initial encounter Status: Acute Assessment and Plan: will proceed with urgent EGD to remove bolus, more recommendations after egd (2) Aspiration pneumonia: Code(s): J69.0 - Pneumonitis due to inhalation of food and vomit Status: Acute Assessment and Plan: started on abx this will be managed by hospitalist (3) Tobacco dependence: Code(s): F17.200 - Nicotine dependence, unspecified, uncomplicated Status: Acute GI Consult Note Consult date/time: 04/30/25 09:30 Reason for consult: food bolus HPI: Gregorio Stephens is a 64 year old male smoker who came to the emergency department complaining of a fluid bolus since 6:00 p.m. last night after he had turkey. He has not been able to drink or eat anything since. He had similar episode in past but treated with IV medication which resolved the food bolus. CXR noted possible atelectasis vs pneumonia, started on abx. Review of Systems 2 Constitutional: Constitutional: Denies headache(s) and Denies weakness Eyes: Eyes: Denies blurry vision ENT: Reports Normal hearing present, Denies headache(s) and Denies neck pain Cardiovascular: Cardiovascular: Denies chest pain and Denies dyspnea Respiratory: Respiratory: Denies dyspnea Gastrointestinal: Gastrointestinal: Reports no additional gastrointestinal complaints Genitourinary: Genitourinary: Denies dysuria Musculoskeletal: Musculoskeletal: Denies neck pain Integumentary/Breasts: Skin/Breast: Denies dry skin Neurologic: Reports Normal hearing present, Denies headache(s) and Denies weakness Psychiatric: Psychiatric: Denies anxiety Endocrine: Endocrine: Denies change in body appearance Hematologic/Lymphatic: Hematologic/Lymphatic: Denies easy bleeding Allergic/Immunologic: Allergic/Immunologic: Denies urticaria PMFSH Past Medical History Medical History Thyroid disorder Right-sided cerebrovascular accident (CVA) Falls frequently Cerebrovascular disease Meniere syndrome Tobacco dependence Male erectile dysfunction, unspecified Morbid (severe) obesity due to excess calories Hypothyroidism, unspecified Family History Family History Father Rheumatoid arthritis Mother Lung cancer Sibling Diabetes mellitus Social History Social History Smoking packs per day: 1.5 Smoking cigarettes per day: 30.0 Years smoked: 43 Smoking pack-years: 64.50 Smoking status: Current every day smoker Tobacco type: cigarettes Alcohol intake: former Substance use: current Substance use type: marijuana Do You Feel Safe in your Home?: Yes Lack of Transportation: No Lack of Food: Never True Current Housing: I Have Housing Concerned About Future Housing: No Difficulty Paying Gas/Electric Bills: No Difficulty Paying for Meds: No Currently Unemployed: No Education: High School Diploma/GED Difficulty w/ Childcare or Family Care: No Living arrangements: with family Spiritual care concerns: No Meds Home Medications and Allergies Home Medications ?Medication ?Instructions ?Recorded ?Confirmed ?Type levothyroxine 175 mcg tablet 175 mcg PO DAILY@0630 30 days #30 02/21/25 04/27/25 Rx (Synthroid) tabs loratadine-pseudoephedrine ER 10 1 tablet PO DAILY #90 tabs 04/19/25 04/27/25 Rx mg-240 mg tablet,extended [id number] (Claritin-D 24 Hour) doxycycline hyclate 100 mg capsule 100 mg PO BID 5 days #10 caps 04/30/25 Rx Allergies Allergy/AdvReac Type Severity Reaction Status Date / Time No Known Allergies Allergy Mild Verified 04/30/25 08:27 Vital Signs Vital Signs - 24 hr 04/30/25 05:39 04/30/25 07:19 04/30/25 07:25 Temperature 98.2 F Pulse Rate 83 64 86 Respiratory Rate 18 14 14 Blood Pressure 144/75 H 144/92 H Pulse Oximetry 90 91 Oxygen Delivery Oxygen Flow Rate 04/30/25 07:26 04/30/25 07:33 04/30/25 08:17 Temperature Pulse Rate 89 Respiratory Rate 15 Blood Pressure Pulse Oximetry 91 94 Oxygen Delivery Room Air Nasal Cannula Oxygen Flow Rate 3 04/30/25 08:24 04/30/25 08:24 04/30/25 08:26 Temperature 97.7 F 98 F Pulse Rate 90 95 Respiratory Rate 18 16 Blood Pressure 134/86 108/45 L Pulse Oximetry 94 94 96 Oxygen Delivery Nasal Cannula Nasal Cannula Oxygen Flow Rate 3 3 04/30/25 09:06 04/30/25 09:16 04/30/25 09:26 Temperature 97.7 F Pulse Rate 92 89 84 Respiratory Rate 28 H 24 H 26 H Blood Pressure 112/50 L 90/56 L 92/53 L Pulse Oximetry 92 91 90 Oxygen Delivery Nasal Cannula Nasal Cannula Nasal Cannula Oxygen Flow Rate 4 4 4 Exam 2 Const: General: comfortable and no acute distress Other: still spitting out saliva HENMT: Face/Nose/Sinus: Normal nares present Eyes: General: appearance normal, both eyes and all related structures Neck: Neck: supple Resp: Auscultation: clear to auscultation bilaterally Cardio: Rate: regular rate Rhythm: regular rhythm GI: Inspection: non-distended GI Palp: Yes Soft to palpation and No Tenderness to palpation present (GI) Auscultation: normal bowel sounds Skin: General skin exam: normal color Neuro: Speech: normal speech Motor exam (neuro): 5/5 motor strength present throughout Extrem: General: normal to inspection Psych: Mental Status: mental status grossly normal Results Labs 04/30/25 06:29 04/30/25 06:29 Labs: Short CBC 04/30/25 Range/Units 06:29 WBC 11.2 H (4.5-10.0) K/mm3 Hgb 17.2 (14.0-18.0) g/dL Hct 52.5 H (42.0-52.0) % Plt Count 272 (150-375) k/mm3 BMP 04/30/25 06:29 Sodium 140 Potassium 4.2 Chloride 104 Carbon Dioxide 26 BUN 13 D Creatinine 0.67 L Glucose 120 H Calcium 9.1 Liver Function 04/30/25 Range/Units 06:29 Total Bilirubin 0.7 (0.2-1.3) mg/dL AST 29 (17-59) U/L ALT 21 (6-50) U/L Alkaline Phosphatase 90 (38-126) U/L Albumin 4.3 (3.5-5.1) g/dL
--- NOTE | 2025-04-30 10:20 | ADMGEN ---
This patient, Gregorio Stephens, was admitted to [facility] Surg Room 304-02. Patient/family oriented to hospital policies and general routines including ID bracelet, bed and alarms, visiting hours, pain management, procedures, bathroom and other care routines, personal items, smoking policy, room service/diet, and visiting hours. Information on how to activate the Rapid Response Team has been discussed. Patient/Family are encouraged to report perceived risks to care and to ask questions if they do not understand what they are told or what they should do.
[2025-04-30] MEDS: cefTRIAXone 1 GM in SODIUM CHLORIDE 0.9% IV 50 ML 100 ML IVPB (10:48)
[2025-04-30] MEDS: metroNIDAZOLE 500 MG/ISO 100ML 500 MG/100 ML BAG 100 MG IVPB ×2 (11:29→21:09)
--- NOTE | 2025-04-30 12:10 | PM.IMHP ---
H&P: HPI History of Present Illness Date/Time: 04/30/25 12:10 Chief Complaint: food bolus Narrative: 64-year-old male past medical history of hypothyroidism meniere's disease presented to the ER on account of food bolus. Patient reported he was in his usual state of health until yesterday evening during the night he was eating chicken nuggets when stuck in his throat I tried all night to comfortable with no success consistent presented here of this morning at about 4:00 a.m. for proper evaluation and care. Denies any chest pain no shortness for breath no vomiting no diarrhea no abdominal pain no dysuria. ER over notable for blood pressure 108/45, saturation 96% on 3 L oxygen. White count 11.2 Chest x-ray showed mild opacities in the bilateral. GI was consulted and patient was taken to the endoscopy suit and food bolus was instructed Patient was seen after the endoscopy. Review of Systems Review of Systems: All other systems reviewed and negative except as noted in history above. [facility] Past Medical History Medical History Thyroid disorder Right-sided cerebrovascular accident (CVA) Falls frequently Cerebrovascular disease Meniere syndrome Tobacco dependence Male erectile dysfunction, unspecified Morbid (severe) obesity due to excess calories Hypothyroidism, unspecified Family History Family History (Updated 04/30/25 @ 10:33 by Rabia Garcia RN) Father Rheumatoid arthritis Mother Lung cancer Sibling Diabetes mellitus Bladder cancer Social History Social History Smoking packs per day: 2 Smoking cigarettes per day: 40.0 Years smoked: 45 Smoking pack-years: 90.00 Smoking status: Current every day smoker Tobacco type: cigarettes Alcohol intake: never Substance use: never Substance use type: does not use Do You Feel Safe in your Home?: Yes Lack of Transportation: No Lack of Food: Never True Current Housing: I Have Housing Concerned About Future Housing: No Difficulty Paying Gas/Electric Bills: No Difficulty Paying for Meds: No Currently Unemployed: No Education: High School Diploma/GED Difficulty w/ Childcare or Family Care: No Living arrangements: with family Spiritual care concerns: No Meds Home Medications and Allergies Home Medications ?Medication ?Instructions ?Recorded ?Confirmed ?Type levothyroxine 175 mcg tablet 175 mcg PO DAILY@629 days #30 02/21/25 04/30/25 Rx (Synthroid) tabs loratadine-pseudoephedrine ER 10 1 tablet PO DAILY #90 tabs 04/19/25 04/30/25 Rx mg-240 mg tablet,extended [id number] (Claritin-D 24 Hour) aspirin 81 mg tablet,delayed 81 mg PO DAILY 04/30/25 04/30/25 History release (Adult Low Dose Aspirin) doxycycline hyclate 100 mg capsule 100 mg PO BID 5 days #10 caps 04/30/25 Rx Allergies Allergy/AdvReac Type Severity Reaction Status Date / Time No Known Allergies Allergy Mild Verified 04/30/25 08:27 Vital Signs Vital Signs - 24 hr 04/30/25 05:39 04/30/25 07:19 04/30/25 07:25 Temperature 98.2 F Pulse Rate 83 64 86 Respiratory Rate 18 14 14 Blood Pressure 144/75 H 144/92 H Pulse Oximetry 90 91 Oxygen Delivery Oxygen Flow Rate 04/30/25 07:26 04/30/25 07:33 04/30/25 08:17 Temperature Pulse Rate 89 Respiratory Rate 15 Blood Pressure Pulse Oximetry 91 94 Oxygen Delivery Room Air Nasal Cannula Oxygen Flow Rate 3 04/30/25 08:24 04/30/25 08:24 04/30/25 08:26 Temperature 97.7 F 98 F Pulse Rate 90 95 Respiratory Rate 18 16 Blood Pressure 134/86 108/45 L Pulse Oximetry 94 94 96 Oxygen Delivery Nasal Cannula Nasal Cannula Oxygen Flow Rate 3 3 04/30/25 09:06 04/30/25 09:16 04/30/25 09:26 Temperature 97.7 F Pulse Rate 92 89 84 Respiratory Rate 28 H 24 H 26 H Blood Pressure 112/50 L 90/56 L 92/53 L Pulse Oximetry 92 91 90 Oxygen Delivery Nasal Cannula Nasal Cannula Nasal Cannula Oxygen Flow Rate 4 4 4 04/30/25 09:36 04/30/25 09:46 04/30/25 09:56 Temperature Pulse Rate 78 77 78 Respiratory Rate 26 H 20 20 Blood Pressure 97/60 L 89/55 L 97/51 L Pulse Oximetry 94 94 95 Oxygen Delivery Nasal Cannula Nasal Cannula Nasal Cannula Oxygen Flow Rate 4 4 4 04/30/25 10:31 04/30/25 11:15 Temperature 96.4 F L Pulse Rate 67 Respiratory Rate 20 Blood Pressure 141/84 H Pulse Oximetry 90 90 Oxygen Delivery Nasal Cannula Oxygen Flow Rate 2 Exam Narrative: General: alert and comfortable Eyes: EOMI, PERRLA ENNT External ears normal, Neck is supple, no masses, Respiratory systems: Clear to auscultation Cardiovascular S1, S2, normal rhythm, no murmur, rub, or gallop; no thrill or palpable murmurs on palpation. Gastrointestinal: soft, non-tender, and non-distended abdomen with no masses; BS present Skin: no rash, lesions, ulcerations, subcutaneous nodules or induration Musculoskeletal: no abnormality and no tenderness, normal ROM Neurologic: Alert and oriented x3, non focal Mental Status Exam: normal affect H&P: Results Labs Labs: Short CBC 04/30/25 Range/Units 06:29 WBC 11.2 H (4.5-10.0) K/mm3 Hgb 17.2 (14.0-18.0) g/dL Hct 52.5 H (42.0-52.0) % Plt Count 272 (150-375) k/mm3 BMP 04/30/25 06:29 Sodium 140 Potassium 4.2 Chloride 104 Carbon Dioxide 26 BUN 13 D Creatinine 0.67 L Glucose 120 H Calcium 9.1 Liver Function 04/30/25 Range/Units 06:29 Total Bilirubin 0.7 (0.2-1.3) mg/dL AST 29 (17-59) U/L ALT 21 (6-50) U/L Alkaline Phosphatase 90 (38-126) U/L Albumin 4.3 (3.5-5.1) g/dL Assessment and Plan Assessment and plan (1) Esophageal obstruction due to food impaction: Code(s): T18.128A - Food in esophagus causing other injury, initial encounter; W44.F3XA - Food entering into or through a natural orifice, initial encounter Status: Acute (2) Aspiration pneumonia: Code(s): J69.0 - Pneumonitis due to inhalation of food and vomit Status: Acute Plan Food impaction with esophageal obstruction A cold drink denied last night Status post endoscopy with to obstruction Monitor Pneumonia, likely from aspiration Chest x-ray reviewed, leukocytosis Continue Rocephin< Doxycycline and Flagyl Monitor cultues Acute hypoxemic respiratory failure From pneumonia Continue above care, titrate oxygen. Hypothyroidism Continue levothyroxine Meniere's disease Continue home medication. DVT prophylaxis subQ Lovenox. Full code Surrogate decision [facility] Advance Care Plan I have confirmed that the patient's Advanced Care Plan is present, code status is documented, or surrogate decision maker is listed in patient medical record.: Yes Medication Reconciliation I have utilized all available resources to obtain, update and review the patients current medications (includes all prescriptions, OTC, herbals, cannabis, and nutritional supplements).: Yes
[2025-04-30] MEDS: DOXYCYCLINE IV 100 MG in SODIUM CHLORIDE 0.9% IV 100 ML IVPB (14:19)
[2025-05-01] VITALS (11 sets, daily range): BP systolic 150; BP diastolic 80; PULSE 70–101; RESP 15–16; TEMP 36.3; O2SAT 83–94
[2025-05-01] MEDS: DOXYCYCLINE IV 100 MG in SODIUM CHLORIDE 0.9% IV 100 ML IVPB ×2 (01:07→12:51)
[2025-05-01] MEDS: IPRATROPIUM 0.5 MG/ALBUTEROL SULFATE 2.5 MG AMPUL.NEB 3 ML INHALATION ×2 (01:54→07:37)
[2025-05-01] MEDS: metroNIDAZOLE 500 MG/ISO 100ML 500 MG/100 ML BAG 100 MG IVPB (05:50)
[2025-05-01] MEDS: LEVOTHYROXINE SODIUM 25 MCG TABLET PO (05:50)
[2025-05-01] MEDS: LEVOTHYROXINE SODIUM 150 MCG TABLET PO (05:50)
[2025-05-01 06:33] LABS: Hematocrit 49.6 % (42.0-52.0); Hemoglobin 16.2 g/dL (14.0-18.0); Immature Granulocyte Percent A 0.3 % (0-0.5); Lymphocytes Absolute Auto 3.35 K/mm3 (0.9-3.2); Mean Corpuscular HGB Conc 32.7 g/dl (32-36); Mean Corpuscular Hemoglobin 31.4 pg (26-34); Mean Corpuscular Volume 96.1 fl (80-100); Nucleated Red Blood Cells Absolute Auto 0.000 K/mm3 (0.0-0.012); Nucleated Red Blood Cells Perc 0.0 % (0.0-0.2); Platelet Count Result 249 k/mm3 (150-375); Red Blood Count 5.16 M/mm3 (4.6-6.20); White Blood Count 11.3 K/mm3 (4.5-10.0)
[2025-05-01 06:53] LABS: Alanine Aminotransferase 17 U/L (6-50); Albumin Level 4.0 g/dL (3.5-5.1); Alkaline Phosphatase 71 U/L (38-126); Anion Gap 8 mmol/L (4-12); Aspartate Amino Transferase 29 U/L (17-59); Bilirubin,Total 0.8 mg/dL (0.2-1.3); Blood Urea Nitrogen 10 mg/dL (9-20); Calcium 8.9 mg/dL (8.4-10.2); Carbon Dioxide 28 mmol/L (22-30); Chloride 101 mmol/L (98-107); Estimated CRCL calculation 133 ml/min; Estimated Glomerular Filt Rate > 60; Glucose 113 mg/dL (65-110); Magnesium 2.1 mg/dL (1.6-2.3); Potassium 3.6 mmol/L (3.4-5.0); Sodium 137 mmol/L (137-145); Total Protein 7.7 g/dL (6.3-8.2)
--- NOTE | 2025-05-01 07:16 | P.PNAN_ITS ---
Anes - Prog Note Post-Op Date/Time: 05/01/25 07:16 Cardiovascular status: normal Respiratory status: normal Airway patency: baseline Mental status: baseline Post-Op hydration status: normal Vital Signs: Last Vital Signs Temp 36.3 C L 05/01/25 05:08 Pulse 78 05/01/25 05:08 Resp 16 05/01/25 05:08 BP 150/80 H 05/01/25 05:08 Pulse Ox 92 05/01/25 05:08 O2 Del Method Room Air 04/30/25 20:00 O2 Flow Rate 2 04/30/25 13:58 FiO2 21 04/30/25 19:44 Pain Score (VAS): 1 I/O: Intake & Output 04/30/25 04/30/25 05/01/25 15:59 23:59 07:59 Intake Total 522 340 650 Balance 522 340 650 Laboratory Tests 05/01/25 05:42 05/01/25 05:42 05/01/25 05:42 WBC 11.3 H RBC 5.16 Hgb 16.2 Hct 49.6 MCV 96.1 MCH 31.4 MCHC 32.7 RDW 14.1 Plt Count 249 MPV 11.0 H Immature Gran % (Auto) 0.3 Neut % (Auto) 59.9 Lymph % (Auto) 29.5 Nelson % (Auto) 7.9 Eos % (Auto) 2.0 Baso % (Auto) 0.4 Lymph # (Auto) 3.35 H Nelson # (Auto) 0.9 H Eos # (Auto) 0.2 Baso # (Auto) 0.0 Abs Immat Gran (auto) 0.03 Absolute Neuts (auto) 6.8 H Absolute Nucleated RBC 0.000 Nucleated RBC % 0.0 Sodium 137 Potassium 3.6 Chloride 101 Carbon Dioxide 28 Anion Gap 8 BUN 10 Creatinine 0.70 Estim Creat Clear Calc 133 Estimated GFR > 60 Glucose 113 H Calcium 8.9 Magnesium 2.1 Total Bilirubin 0.8 AST 29 ALT 17 Alkaline Phosphatase 71 Total Protein 7.7 Albumin 4.0 Post-procedural complaints: none Patient Feedback: Patient satisfied with anesthetic care.
[2025-05-01] MEDS: ASPIRIN 81 MG ENTERIC TABLET PO (08:28)
[2025-05-01] MEDS: LORATADINE/PSEUDOEPHEDRINE (*CRX) 10/240 MG TABLET ER 24 HR 1 TAB PO (08:28)
[2025-05-01] MEDS: ENOXAPARIN 40 MG/0.4 ML SYRINGE SUB-Q (08:28)
[2025-05-01] MEDS: PANTOPRAZOLE 40 MG TABLET PO (08:28)
[2025-05-01] MEDS: cefTRIAXone 1 GM in SODIUM CHLORIDE 0.9% IV 50 ML 100 ML IVPB (08:31)
--- NOTE | 2025-05-01 11:01 | P.PNGI_ITS ---
Progress Note: A&P Assessment and Plan (1) Esophageal obstruction due to food impaction: Code(s): T18.128A - Food in esophagus causing other injury, initial encounter; W44.F3XA - Food entering into or through a natural orifice, initial encounter Status: Acute Assessment and Plan: treated with egd yesterday recommend to eat small portions and always chew food will set up EGD in about 3 months to reassess and consider dilation no objections to discharge by gi standpoint (2) Aspiration pneumonia: Code(s): J69.0 - Pneumonitis due to inhalation of food and vomit Status: Acute (3) Tobacco dependence: Code(s): F17.200 - Nicotine dependence, unspecified, uncomplicated Status: Acute (4) Respiratory failure: Code(s): J96.90 - Respiratory failure, unspecified, unspecified whether with hypoxia or hypercapnia Status: Acute Assessment and Plan: resolved Subjective Date/time seen: 05/01/25 11:01 Interval history: no more issues eating breathing better and he is not requiring oxygen now Review of Systems Review of Systems: All systems reviewed & are unremarkable except as noted in HPI and below Exam Const: General: comfortable and no acute distress HENMT: Face/Nose/Sinus: Normal nares present Eyes: General: appearance normal, both eyes and all related structures Neck: Neck: supple Resp: Auscultation: clear to auscultation bilaterally Cardio: Rate: regular rate Rhythm: regular rhythm GI: Inspection: non-distended GI Palp: Yes Soft to palpation and No Tenderness to palpation present (GI) Auscultation: normal bowel sounds Skin: General skin exam: normal color Neuro: Speech: normal speech Extrem: General: normal to inspection Psych: Mental Status: mental status grossly normal Objective Data Vital Signs Vital Signs: Vital Signs - 24 hr 04/30/25 11:15 04/30/25 13:56 04/30/25 13:58 Temperature Pulse Rate 89 Respiratory Rate 16 Blood Pressure Pulse Oximetry 90 90 Oxygen Delivery Nasal Cannula Nasal Cannula Oxygen Flow Rate 2 2 Fraction of Inspired Oxygen 04/30/25 14:00 04/30/25 14:02 04/30/25 19:39 Temperature 98.2 F Pulse Rate 82 81 89 Respiratory Rate 16 20 15 Blood Pressure 136/83 Pulse Oximetry 96 Oxygen Delivery Oxygen Flow Rate Fraction of Inspired Oxygen 04/30/25 19:44 04/30/25 19:54 04/30/25 20:00 Temperature Pulse Rate 75 89 Respiratory Rate 15 Blood Pressure Pulse Oximetry 96 Oxygen Delivery Room Air Room Air Oxygen Flow Rate Fraction of Inspired Oxygen 21 04/30/25 21:07 05/01/25 01:55 05/01/25 02:06 Temperature 97.2 F L Pulse Rate 82 89 89 Respiratory Rate 16 15 15 Blood Pressure 123/68 Pulse Oximetry 91 Oxygen Delivery Oxygen Flow Rate Fraction of Inspired Oxygen 05/01/25 05:08 05/01/25 07:38 05/01/25 07:38 Temperature 97.3 F L Pulse Rate 78 70 Respiratory Rate 16 16 Blood Pressure 150/80 H Pulse Oximetry 92 87 L Oxygen Delivery Room Air Oxygen Flow Rate Fraction of Inspired Oxygen 05/01/25 07:42 05/01/25 07:45 05/01/25 08:00 Temperature Pulse Rate 70 Respiratory Rate 16 Blood Pressure Pulse Oximetry 90 93 Oxygen Delivery Nasal Cannula Nasal Cannula Oxygen Flow Rate 1 1 Fraction of Inspired Oxygen Intake/Output Intake/Output: Intake & Output 04/28/25 04/29/25 04/30/25 05/01/25 23:59 23:59 23:59 23:59 Intake Total 862 890 Balance 862 890 Meds/Results Medications: Active Medications Generic Name Dose Route Start Last Admin Trade Name Freq PRN Reason Stop Dose Admin Acetaminophen 650 mg 04/30/25 08:23 Acetaminophen 325 Mg Tablet PO Q4H PRN Mild Pain (1-3) or Fever Albuterol/Ipratropium 3 ml 04/30/25 14:00 05/01/25 07:37 Ipratropium 0.5 Mg/Albuterol Sulfate 2.5 Mg Ampul.Neb 3 Ml INHALATION 3 ml Q6HRT CHARITO Administration Aspirin 81 mg 05/01/25 09:00 05/01/25 08:28 Aspirin 81 Mg Enteric Tablet PO 81 mg DAILY CHARITO Administration Enoxaparin Sodium 40 mg 05/01/25 09:00 05/01/25 08:28 Enoxaparin 40 Mg/0.4 Ml Syringe SUB-Q 40 mg DAILY CHARITO Administration Ceftriaxone Sodium 1 gm/ 50 mls @ 100 mls/hr 05/01/25 09:00 05/01/25 08:31 Sodium Chloride IVPB 100 mls/hr Q24H CHARITO Administration Doxycycline Hyclate 100 mg/ 100 mls @ 100 mls/hr 04/30/25 13:00 05/01/25 02:07 Sodium Chloride IVPB Infused Q12H CHARITO Infusion Metronidazole 500 mg in 100 mls @ 100 mls/hr 04/30/25 22:00 05/01/25 05:50 Flagyl 500 Mg/Iso Soln 100 Ml IVPB 100 mls/hr Q8HR CHARITO Administration Levothyroxine Sodium 150 mcg 05/01/25 06:30 05/01/25 05:50 Levothyroxine Sodium 150 Mcg Tablet PO 150 mcg DAILY@0630 CHARITO Administration Levothyroxine Sodium 25 mcg 05/01/25 06:30 05/01/25 05:50 Levothyroxine Sodium 25 Mcg Tablet PO 25 mcg DAILY@30 CHARITO Administration Loratadine/Pseudoephedrine Sulfate 1 tab 05/01/25 09:00 05/01/25 08:28 Loratadine/Pseudoephedrine (*Crx) 10/240 Mg Tablet Er 24 Hr PO 1 tab DAILY CHARITO Administration Ondansetron HCl 4 mg 04/30/25 08:23 Ondansetron Inj 4 Mg/2 Ml Vial IV PUSH Q4H PRN Nausea Pantoprazole Sodium 40 mg 05/01/25 09:00 05/01/25 08:28 Pantoprazole 40 Mg Tablet PO 40 mg QAM CHARITO Administration Radiology Results: ITS Impressions Chest X-Ray 04/30/25 06:41 IMPRESSION: 1. Mild opacities at the bilateral lung bases which represent atelectasis, mild pulmonary edema, pneumonia or some combination thereof. Labs Labs: Laboratory Results - last 24 hr 05/01/25 05:42 WBC 11.3 H RBC 5.16 Hgb 16.2 Hct 49.6 MCV 96.1 MCH 31.4 MCHC 32.7 RDW 14.1 Plt Count 249 MPV 11.0 H Immature Gran % (Auto) 0.3 Neut % (Auto) 59.9 Lymph % (Auto) 29.5 Winston % (Auto) 7.9 Eos % (Auto) 2.0 Baso % (Auto) 0.4 Lymph # (Auto) 3.35 H Winston # (Auto) 0.9 H Eos # (Auto) 0.2 Baso # (Auto) 0.0 Abs Immat Gran (auto) 0.03 Absolute Neuts (auto) 6.8 H Absolute Nucleated RBC 0.000 Nucleated RBC % 0.0 Sodium 137 Potassium 3.6 Chloride 101 Carbon Dioxide 28 Anion Gap 8 BUN 10 Creatinine 0.70 Estim Creat Clear Calc 133 Estimated GFR > 60 Glucose 113 H Calcium 8.9 Magnesium 2.1 Total Bilirubin 0.8 AST 29 ALT 17 Alkaline Phosphatase 71 Total Protein 7.7 Albumin 4.0
--- NOTE | 2025-05-01 12:30 | HOMEO2EVAL ---
Evaluation was performed at [facility] Home Oxygen Evaluation RC: Home Oxygen (O2) Evaluation Start: 05/01/25 11:53 Freq: ONCE Status: Active Protocol: RPE Activity Type Activity Date Activity User E-sign Co-sign Detail Recorded Client Recorded Date Recorded By Document 05/01/25 12:09 [email or web address] [email or web address] 05/01/25 12:30 KRM Document 05/01/25 12:16 [email or web address] [email or web address] 05/01/25 12:30 KRM Document 05/01/25 12:18 [email or web address] [email or web address] 05/01/25 12:30 KRM Document 05/01/25 12:20 [email or web address] 05/01/25 12:30 KRM 05/01/25 05/01/25 05/01/25 12:09 12:16 12:18 Home O2 Evaluation [Oxygen] -Test Phase Resting Exercise Exercise -Oxygen Delivery Room Air Room Air Nasal Cannula -Oxygen Flow Rate (L/min) 1 [Pulse Oximetry] -Pulse Oximetry (90-100 %) 94 83 L 85 L [Pulse Rate] -Pulse Rate (60-100 beats/min) 80 101 H 84 [Evaluation] -Activity Tolerance [Exercise] -Ambulation Distance (feet) -Ambulation Distance (meters) [Comments] -Home Oxygen Evaluation Comments [Charges] -Evaluation Charges 05/01/25 12:20 Home O2 Evaluation [Oxygen] -Test Phase Exercise -Oxygen Delivery Nasal Cannula -Oxygen Flow Rate (L/min) 2 [Pulse Oximetry] -Pulse Oximetry (90-100 %) 90 [Pulse Rate] -Pulse Rate (60-100 beats/min) 79 [Evaluation] -Activity Tolerance Good [Exercise] -Ambulation Distance (feet) 200 -Ambulation Distance (meters) 60.95 [Comments] -Home Oxygen Evaluation Comments 2lpm with activity. pt. requesting Portable concentrator [Charges] -Evaluation Charges O2 Evaluation by LAURA
--- NOTE | 2025-05-01 13:24 | P.DS_ITS ---
DS: Admitting Diagnosis Discharge Date 05/01/25 Admitting Diagnosis food bolus DS: Discharge Diagnosis Discharge Diagnosis (1) Esophageal obstruction due to food impaction: Code(s): T18.128A - Food in esophagus causing other injury, initial encounter; [id number].F3XA - Food entering into or through a natural orifice, initial encounter Status: Acute (2) Aspiration pneumonia: Code(s): J69.0 - Pneumonitis due to inhalation of food and vomit Status: Acute (3) Respiratory failure: Code(s): J96.90 - Respiratory failure, unspecified, unspecified whether with hypoxia or hypercapnia Status: Acute DS: Summary Hospital Course Hospital Course: 64-year-old male past medical history of hypothyroidism meniere's disease presented to the ER on account of food bolus. Patient reported he was in his usual state of health until yesterday evening during the night he was eating chicken nuggets when stuck in his throat I tried all night to comfortable with no success consistent presented here of this morning at about 4:00 a.m. for proper evaluation and care. Denies any chest pain no shortness for breath no vomiting no diarrhea no abdominal pain no dysuria. ER over notable for blood pressure 108/45, saturation 96% on 3 L oxygen. White count 11.2 Chest x-ray showed mild opacities in the bilateral. GI was consulted and patient was taken to the endoscopy suit and food bolus was instructed Patient was seen after the endoscopy. Rancho was started on Antibiotics for Pneumonia, CXR showed bilateral lung opacities patient required oxygen. Today home o2 eval was done and melva is needing 2 liters on exertion. Discharged on 6 more days of Augmentin and Doxycycline. Patient tolerating diet. F/u with PCP in 3-5 days F/u with GI as instructed. Time Spent with Patient Time attestation: Total time spent providing and/or coordinating discharge services: DS: Data Data Completed and Pending Labs on day of discharge: Labs from last 24 hours 05/01/25 05:42 WBC 11.3 H RBC 5.16 Hgb 16.2 Hct 49.6 MCV 96.1 MCH 31.4 MCHC 32.7 RDW 14.1 Plt Count 249 MPV 11.0 H Immature Gran % (Auto) 0.3 Neut % (Auto) 59.9 Lymph % (Auto) 29.5 Robeson % (Auto) 7.9 Eos % (Auto) 2.0 Baso % (Auto) 0.4 Lymph # (Auto) 3.35 H Robeson # (Auto) 0.9 H Eos # (Auto) 0.2 Baso # (Auto) 0.0 Abs Immat Gran (auto) 0.03 Absolute Neuts (auto) 6.8 H Absolute Nucleated RBC 0.000 Nucleated RBC % 0.0 Sodium 137 Potassium 3.6 Chloride 101 Carbon Dioxide 28 Anion Gap 8 BUN 10 Creatinine 0.70 Estim Creat Clear Calc 133 Estimated GFR > 60 Glucose 113 H Calcium 8.9 Magnesium 2.1 Total Bilirubin 0.8 AST 29 ALT 17 Alkaline Phosphatase 71 Total Protein 7.7 Albumin 4.0 Discharge Plan Discharge Attending physician on discharge: Josh Manrique Discharging Clinician: Josh Manrique Anticipated Discharge Date/Time: 05/01/25 13:21 Patient Disposition: Home Activity: as tolerated Diet: as tolerated Patient Instructions: Antibiotic Form Patient Language: Croatian Stand Alone Forms: General Discharge Information Follow-up/Referrals: Radha Garcia APRN [Primary Care Provider] - 3 Days Jovan Leos MD [Physician] - (F/u with GI as instructed ) Discharge Medications: New amoxicillin-pot clavulanate 875-125 mg tablet 1 tablet PO Q12H 6 Days Qty: 12 0RF doxycycline hyclate 100 mg tablet 100 mg PO BID 6 Days Qty: 12 0RF Continued Claritin-D 24 Hour 10-240 mg tablet extended release 24 hr 1 tablet PO DAILY Qty: 90 3RF aspirin [Adult Low Dose Aspirin] 81 mg tablet,delayed release (DR/EC) 81 mg PO DAILY levothyroxine [Synthroid] 175 mcg tablet 175 mcg PO DAILY@0630 30 Days Qty: 30 5RF Date of admission: 04/30/25 08:25 Primary Care Provider: Radha Garcia Admitting Provider: Josh Manrique Attending physician on admission: Jovan Leos Condition: Stable
== END 2025-05-01 14:26 | disposition home or self-care (01) ==
LOC: ANHED 07:11 → ANHENDO 08:21 → ANH3MEDSUR 05-01 13:22
PROVIDERS: Emergency Medicine; Internal Medicine Gastroenterology; Admitting Provider Internal Medicine; Emergency Provider Emergency Medicine; PCP Nurse Practitioner Family; Visit Provider Internal Medicine
PROC: 0DJ08ZZ Inspection of Upper Intestinal Tract, Via Natural or Artificial Opening Endoscopic (ICD-10-PCS; CPT 43247; principal; 2025-04-30 08:00)
DX: T18.128A Food in esophagus causing other injury, initial encounter (principal); W44.F3XA Food entering into or through a natural orifice, initial encounter; J69.0 Pneumonitis due to inhalation of food and vomit; J96.90 Respiratory failure, unspecified, unspecified whether with hypoxia or hypercapnia; K22.2 Esophageal obstruction; Z86.73 Personal history of transient ischemic attack (TIA), and cerebral infarction without residual deficits; E03.9 Hypothyroidism, unspecified; H81.09 Meniere's disease, unspecified ear; F17.210 Nicotine dependence, cigarettes, uncomplicated
CPT/HCPCS: 43247; 36415; 71045; 80053; 83735; 85025; 94618; 94640; 96365; 96366; 96367; 96372; 96374; 96375; 96376; 99285; A9270; G0378; J0330; J0696; J1610; J1650; J1836; J2405; J2704; J7120

== ENCOUNTER 2025-08-03 02:18 | Day surgery (SDC) | payer BC, SELFPAY ==
[2025-07-26 11:34] VITALS: BMI 43.7
--- NOTE | 2025-08-03 07:09 | P.PNAN_ITS ---
Anes - Initial Pre Proc Eval Procedure: Operation Date: 08/03/25 10:30 Proposed Procedures p Esophagogastroduodenoscopy - Jovan Leos MD Date/Time: 08/03/25 07:09 Surgeon: Jovan Leos MD Pre Op Diagnosis: Food in esophagus causing other injury, initial en Patient Data Age: 64 Gender: M Height: 1.8 m Weight: 142 kg Allergies Allergy/AdvReac Type Severity Reaction Status Date / Time No Known Allergies Allergy Mild Verified 07/26/25 11:31 Home Medications ?Medication ?Instructions ?Recorded ?Confirmed ?Type aspirin 81 mg tablet,delayed 81 mg PO DAILY 04/30/25 1 History release (Adult Low Dose Aspirin) levothyroxine 175 mcg tablet 175 mcg PO DAILY@0630 30 days #30 06/26/25 08/03/25 Rx (Synthroid) tabs omeprazole 20 mg capsule,delayed 20 mg PO DAILY PRN ac id reflux 07/26/25 08/03/25 History release loratadine-pseudoephedrine ER 10 1 tablet PO DAILY #90 tabs 08/02/25 08/03/25 Rx mg-240 mg tablet,extended [id number] (Claritin-D 24 Hour) Patient hx anesthesia problems: none Family hx anesthesia problems: none Results Review: All pre-operative results and documents have been reviewed as part of the pre- operative evaluation. REPLACED BY [facility] Past Medical History Medical History (Updated 08/02/25 @ 14:03 by Amilcar Walden, ) LEONIE (obstructive sleep apnea) Dysphagia Respiratory failure Thyroid disorder Right-sided cerebrovascular accident (CVA) Falls frequently Cerebrovascular disease Meniere syndrome Tobacco dependence Male erectile dysfunction, unspecified Morbid (severe) obesity due to excess calories Hypothyroidism, unspecified Family History Family History Father Rheumatoid arthritis Mother Lung cancer Sibling Diabetes mellitus Bladder cancer Social History Social History (Updated 05/12/25 @ 14:56 by Radha Garcia APRN) Smoking packs per day: 2 Smoking cigarettes per day: 40.0 Years smoked: 45 Smoking pack-years: 90.00 Smoking status: Former smoker Tobacco type: cigarettes Smoking end date: 04/30/25 Alcohol intake: never Substance use: never Substance use type: does not use Do You Feel Safe in your Home?: Yes Lack of Transportation: No Lack of Food: Never True Current Housing: I Have Housing Concerned About Future Housing: No Difficulty Paying Gas/Electric Bills: No Difficulty Paying for Meds: No Currently Unemployed: No Education: High School Diploma/GED Difficulty w/ Childcare or Family Care: No Living arrangements: with family Spiritual care concerns: No Anes - Eval Final PreProcedure Day of Procedure 08/03/25 07:09 Patient weight: morbidly obese Heart: regular rate and rhythm Lungs: clear to auscultation Airway: Mallampati scale class III Neurological: alert and oriented Last oral intake: >/= 8 hours ASA classification: III Emergent: no Anesthetic plan: proceed Anesthesia type and monitoring: general GIVS and standard monitoring Results Review: All pre-operative results and documents have been reviewed as part of the pre- operative evaluation. Informed Consent: The patient's anesthetic plan and its attendant risks and benefits were discussed with the patient/family/POA. Questions were solicited and answers provided to the satisfaction of the patient/family/POA.
[2025-08-03 09:18] VITALS: BP 141/78; PULSE 71; RESP 18; TEMP 36.3; O2SAT 95
[2025-08-03] MEDS: LACTATED RINGERS 1,000 ML 150 ML IV CONT (09:28)
--- NOTE | 2025-08-03 09:44 | P.HP_ITS ---
History of Present Illness History of Present Illness Consent: Risks, benefits, and alternatives have been discussed and questions answered. Patient agrees to proceed with procedure. Chief complaint: Food in esophagus causing other injury, initial en Narrative: Gregorio Stephens is a 64 year old male with food bolus 04/2025 that required urgent EGD Review of Systems Review of Systems: All systems reviewed & are unremarkable except as noted in HPI and below PMFSH Past Medical History Medical History (Updated 08/02/25 @ 14:03 by Amilcar Walden, DO) LEONIE (obstructive sleep apnea) Dysphagia Respiratory failure Thyroid disorder Right-sided cerebrovascular accident (CVA) Falls frequently Cerebrovascular disease Meniere syndrome Tobacco dependence Male erectile dysfunction, unspecified Morbid (severe) obesity due to excess calories Hypothyroidism, unspecified Family History Family History Father Rheumatoid arthritis Mother Lung cancer Sibling Diabetes mellitus Bladder cancer Social History Social History (Updated 05/12/25 @ 14:56 by Radha Garcia, GENETIC PHYSICIAN) Smoking packs per day: 2 Smoking cigarettes per day: 40.0 Years smoked: 45 Smoking pack-years: 90.00 Smoking status: Former smoker Tobacco type: cigarettes Smoking end date: 04/30/25 Alcohol intake: never Substance use: never Substance use type: does not use Do You Feel Safe in your Home?: Yes Lack of Transportation: No Lack of Food: Never True Current Housing: I Have Housing Concerned About Future Housing: No Difficulty Paying Gas/Electric Bills: No Difficulty Paying for Meds: No Currently Unemployed: No Education: High School Diploma/GED Difficulty w/ Childcare or Family Care: No Living arrangements: with family Spiritual care concerns: No Meds Home Medications and Allergies Home Medications ?Medication ?Instructions ?Recorded ?Confirmed ?Type aspirin 81 mg tablet,delayed 81 mg PO DAILY 04/30/25 1 History release (Adult Low Dose Aspirin) levothyroxine 175 mcg tablet 175 mcg PO DAILY@0630 30 days #30 06/26/25 08/03/25 Rx (Synthroid) tabs omeprazole 20 mg capsule,delayed 20 mg PO DAILY PRN ac id reflux 07/26/25 08/03/25 History release loratadine-pseudoephedrine ER 10 1 tablet PO DAILY #90 tabs 08/02/25 08/03/25 Rx mg-240 mg tablet,extended [id number] (Claritin-D 24 Hour) Allergies Allergy/AdvReac Type Severity Reaction Status Date / Time No Known Allergies Allergy Mild Verified 07/26/25 11:31 Vital Signs Vital Signs - 24 hr 08/03/25 09:18 Temperature 97.3 F L Pulse Rate 71 Respiratory Rate 18 Blood Pressure 141/78 H Pulse Oximetry 95 Oxygen Delivery Room Air Exam Const: General: comfortable and no acute distress HENMT: Face/Nose/Sinus: Normal nares present Eyes: General: appearance normal, both eyes and all related structures Neck: Neck: no JVD Resp: Auscultation: clear to auscultation bilaterally Cardio: Rate: regular rate Rhythm: regular rhythm GI: Inspection: non-distended GI Palp: Yes Soft to palpation Skin: General skin exam: normal color Extrem: General: normal to inspection Psych: Mental Status: mental status grossly normal Assessment and Plan Assessment and plan (1) Dysphagia: Code(s): R13.10 - Dysphagia, unspecified Status: Acute Assessment and Plan: egd
--- NOTE | 2025-08-03 09:50 | S_PTH ---
PATIENT: Grgeorio Stephens LOC: [facility] [place]#:[id number] AGE/SX: 64/M ROOM: RE08/03/[address]: Jovan Leos MD : 1960 BED: DIS: 08/03/2025 SPEC #: [id number] RECD: 08/03/25 11:05 STATUS: TRINA RE #: [id number] ANGIE: 08/03/25 09:[address]: Jovan Leos DEPT: [facility] Surgical RECD BY: Luna Tiwari ENTERED: 08/03/25 11:06 SP TYPE: Surgical OTHR DR: Radha Garcia, KIANA Tissues: A - Gastric Biopsy B - Esophageal Biopsy C - Esophageal Biopsy Procedures: Pas with Diastase Grocotts Methenamine Stain Hematoxylin and Eosin Stain Gross and Microscopic Level 4
[2025-08-03 09:53] VITALS: BP 115/61; PULSE 74; RESP 20; O2SAT 92
[2025-08-03 10:03] VITALS: BP 109/66; PULSE 68; RESP 20; O2SAT 94
[2025-08-03 10:13] VITALS: BP 129/87; PULSE 69; RESP 20; O2SAT 95
== END 2025-08-03 10:35 | disposition home or self-care (01) ==
PROVIDERS: PCP Nurse Practitioner Family; Visit Provider Internal Medicine Gastroenterology
PROC: 0DJ08ZZ Inspection of Upper Intestinal Tract, Via Natural or Artificial Opening Endoscopic (ICD-10-PCS; CPT 43239; principal; 2025-08-03 10:30)
DX: K20.90 Esophagitis, unspecified without bleeding (principal); E03.9 Hypothyroidism, unspecified; N52.9 Male erectile dysfunction, unspecified; G47.33 Obstructive sleep apnea (adult) (pediatric); H81.09 Meniere's disease, unspecified ear; J96.90 Respiratory failure, unspecified, unspecified whether with hypoxia or hypercapnia; E66.01 Morbid (severe) obesity due to excess calories; Z68.41 Body mass index [BMI] 40.0-44.9, adult; Z79.82 Long term (current) use of aspirin; Z86.79 Personal history of other diseases of the circulatory system; Z87.891 Personal history of nicotine dependence; Z80.1 Family history of malignant neoplasm of trachea, bronchus and lung; Z80.52 Family history of malignant neoplasm of bladder
CPT/HCPCS: 43239; 88305; 88312; 88313; J2704; J7120